=== PATIENT | female | born 1940 ===

== ENCOUNTER 2024-12-26 21:27 | Observation (INO) | payer MEDICARE, SELFPAY ==
--- OUTSIDE RECORDS SUMMARY | 2024-01-10 04:00 | XMS_ITS ---
Author Organization [facility] Safia mckeon Billing Info Address [address] [place] [address] Care Team Providers Care Stockroom Clerk Name Role Phone Belen Willis Primary Care Provider RODNEY Hernandez [phone] REASON FOR VISIT B/P Check Encounters Encounter Location Date Provider Diagnosis [id number] [place] [id number] [facility] [address] 01/10/2024 RODNEY LYNCH Plan Of Treatment No Information Progress Notes * Melissa DELGADILLO PDOB:[birth year] (84 yo F)Acc No.[id number]:01/10/2024 PROGRESS NOTE Patient: Melissa DIAZ Provider: Ivy LYNCH MD :1940 A ge:83 Y S ex:Female Date:01/10/2024 [facility]#:[id number] Address:[address], [place], [id number] Pcp:Belen Willis Subjective: * Chief Complaints: * 1 . B/P Check. * Medical History: Objective: * Vitals: Assessment: Plan: * Treatment: * * This progress note has not b een verified nor is it considered complete until locked and signed by the provider. Sign off status: Pending * Provider: Ivy LYNCH MD Date: 01/10/2024 Generated for Printi ng/Fakanikag/eTransmitting on: 0 12/26/2024 10:19 PM CDT
--- OUTSIDE RECORDS SUMMARY | 2024-03-07 04:00 | XMS_ITS ---
Author Organization [facility] Safia [facility]ckeon Billing Info Address [address] [place] [address] Care Team Providers Care Mission Support Specialist Name Role Phone Belen Willis Primary Care Provider RODNEY Hernandez [phone] REASON FOR VISIT follow up on results Encounters Encounter Location Date Provider Diagnosis [id number] [place] [id number] [facility] [place] [address] 03/07/2024 RODNEY LYNCH Plan Of Treatment No Information Progress Notes * Melissa DELGADILLO PDOB:[birth year] (84 yo F)Acc No.[id number]:03/07/2024 PROGRESS NOTE Patient: Melissa DIAZ Provider: Ivy LYNCH MD :1940 A ge:83 Y S ex:Female Date:03/07/2024 [facility]#:[id number] Address:[address], [place], [id number] Pcp:Belen Willis Subjective: * Chief Complaints: * 1 . Follow up on results. * Medical History: Objective: * Vitals: Assessment: Plan: * Treatment: * Care Plan Details* * This progress note has not b een verified nor is it considered complete until locked and signed by the provider. Sign off status: Pending * Provider: Ivy LYNCH MD Date: 0 03/07/2024 Generated for Printi ng/Faxing/eTransmitting on: 0 12/26/2024 10:21 PM CDT
--- OUTSIDE RECORDS SUMMARY | 2024-03-27 06:15 | XMS_ITS ---
Author Organization [facility] Safia [facility]ckeon Billing Info Address [address] [place], [place] [address] [place] [address] Care Team Providers Care House Detective Name Role Phone Deshaun Willisa Primary Care Provider RODNEY Hernandez Unavailable [phone] CHRIS ROY Unavailable [phone] Allergies Allergen (clinical drug ingredient) Drug/Non Drug Allergy documented on EMR Reaction Allergy Type Onset Date Status cephalexin Cephalexin Unknown Drug Allergy Activ e REASON FOR VISIT follow up on results*dr boone pt Medications Medication SIG (Take, Route, Frequency, Duration) Notes Start Date End Date Status Meloxicam 15 MG 1 tablet Orally Once a day for 30 day(s) Active Levothyroxine Sodium 25 MCG 1 tablet in the morning on an empty stomach Orally Once a day Active Hydroxychloroquine Sulfate 200 MG as directed Orally Once a day Active Ergocalciferol 1.25 MG (98291 UT) 1 capsule Orally Active Atorvastatin Calcium 10 MG 1 tablet Oral ly Once a day for 90 day(s) Active Olmesartan Medoxomil 20 MG 1 tablet Oral ly Once a day for 90 day(s) Active Xanax 0.25 MG 1 tablet Orally as needed Not-Taking Restasis 0.05 % 1 drop into affected eye Ophthalmic Twice a day Not-Taking GenTeal 0.25-0.3 % 1 drop as needed Ophthalmic Four times a day Not-Taking Metoprolol Succinate ER 100 MG 1 tablet Orally Once a day for 90 day(s) Active Sertraline HCl 25 MG 1 tablet Orally Onc e a day for 30 day(s) Active Aleve 220 MG 1 tablet with food or milk as needed Orally every 12 hrs Not-Taking Vitamin B12 Active Social History Tobacco Use: Social History Observation Description Date Details (start date - stop date) Never Smoker NA - NA Tobacco Status: Question Answer Notes Patient is a never smoker Vital Signs Height 62 in 03/27/2024 Weight 126 lbs 03/27/2024 BMI 23.04 kg/m2 03/27/2024 Blood pressure systolic 121 mm Hg 03/27/20 24 Blood pressure diastolic 71 mm Hg 024 Temperature 98.1 degrees Fahrenheit 03/27/20 24 Heart Rate 70 /min 03/27/2024 Oximetry 93 03/27/2024 Medications verified verball y. ///DB Encounters Encounter Location Date Provider Diagnosis [id number] [facility] [address] [facility] [address] 03/27/2024 CHRIS ROY Essential (primary) hypertension I10 ; Chest pain R07.9 ; Palpitations R00.2 and Dyslipidemia E78.5 Assessments Encounter Date Diagnosis (ICD Code) Assessment Notes Treatment Notes Treatment Clinical Notes Section Notes 03/27/2024 Essential (primary) hypertension (ICD-10 - I10) Blood pressure is well-controlled today and patient endorses improvement. Per previous medical record it appears that at 1 point she was ordered to start valsartan 160 mg daily however patient can not recall her starting this medication she is not taking it now. Given her blood pressure is under control we will keep regimen as such. MPI study was reviewed there was no indications of ischemia. I had qlil-si-iqhm contact with the patient. I have spent more than 50% of the time with the patient, preparing to see the patient, ordering tests, medications and procedures to included physical exam, counseling patient and coordinating care as well as reviewing and interpreting the test not separately reported. Along with counseling patient. Seen by Dr. Paolo Roy NP 03/27/2024 Chest pain (ICD-10 - R07.9) None reported. MPI study was negative I had rvar-vk-kkls contact with the patient. I have spent more than 50% of the time with the patient, preparing to see the patient, ordering tests, medications and procedures to included physical exam, counseling patient and coordinating care as well as reviewing and interpreting the test not separately reported. Along with counseling patient. Seen by Dr. Paolo Roy NP 03/27/2024 Palpitations (ICD-10 - R00.2) No reoccurrence, patient did not have Holter monitor done and given the fact that she is not having any symptoms we will not pursue a Holter monitor at this time I had gpqq-fx-lvsr contact with the patient. I have spent more than 50% of the time with the patient, preparing to see the patient, ordering tests, medications and procedures to included physical exam, counseling patient and coordinating care as well as reviewing and interpreting the test not separately reported. Along with counseling patient. Seen by Dr. Paolo Roy NP 03/27/2024 Dyslipidemia (ICD-10 - E78.5) Patient on statin and tolerating well I had xuas-ye-bpcx contact with the patient. I have spent more than 50% of the time with the patient, preparing to see the patient, ordering tests, medications and procedures to included physical exam, counseling patient and coordinating care as well as reviewing and interpreting the test not separately reported. Along with counseling patient. Seen by Dr. Paolo Roy NP 03/27/2024 Other I had rqta-gg-wqdx contact with the patient. I have spent more than 50% of the time with the patient, preparing to see the patient, ordering tests, medications and procedures to included physical exam, counseling patient and coordinating care as well as reviewing and interpreting the test not separately reported. Along with counseling patient. Seen by Dr. Paolo Roy NP Plan Of Treatment Medication Medication Name Sig Start Date Stop Date Notes Olmesartan Medoxomil 20 MG 1 tablet Oral ly Once a day for 90 day(s) Metoprolol Succinate ER 100 MG 1 tablet Orally Once a day for 90 day(s) Next Appt Details Follow Up: 6 Months, Reason: Progress Notes * Melissa PEREIRA PDOB:[birth year] (83 yo F)Acc No.[id number]:03/27/2024 PROGRESS NOTE Patient: Christel DIAZcichance Cunningham Provider: Yamile ROY AGACNP-BC :1940 A ge:83 Y S ex:Female Date:03/27/2024 C HN#:[id number] Address:[facility] [id number], [facility] [place], [id number] Pcp:Belen Willis Subjective: * Chief Complaints: * F ollow up on results*dr boone pt * HPI: H istory of Present Illness: Mrs. Pereira is an 83 y/o female patient who comes in for her follow up on results. Since last visit she has been in her normal cardiovascular state of health. Pt denies any recent or current chest pain, syncope, shortness of breath or dizziness. She denies any hospitalization and is medication compliant. And endorses that her blood pressure is now controlled. P revious Cardiology History: (11/28/23) NM Stress 1. Baseline ECG: NSR, WNL. 2. Stress: At peak pharmacologic stress the ECG did not show ST changes of myocardial ischemia. There were no arrhythmias present. 3. Stress ECG conclusions: No stress induced ischemia by ECG criteria. 4. Myocardial perfusion imaging: There is no transient ischemic dilation of the left ventricle during stress. The TID ratio is 1.06. Anterior wall attenuation. No reversible myocardial perfusion defects noted; indicating no myocardial ischemia; elicited by exercise that can be demonstrated by nuclear image. 5. Gated SPECT: The calculated left ventricular ejection fraction is 76%. LV global systolic function is normal. No left ventricular regional motion abnormality XR CHEST 06/14/2018: Normal chest LHC 06/25/2018: Normal Left heart filling pressures, Normal LV sys function LV EF 55-60%, no mitral regurg, Mild non obstructive, epicardial CAD. NECK US 12/14/18: Negative for suspicious mass or fluid collection, benign appearing neck lymph nodes are noted most likely reactive, nonspecific enlarged right internal jugular vein without thrombosis. (08/31/2021) CT Angiogram Neck: Minimal nonocclusive atherosclerotic changes in the right carotid bifurcation and proximal cervical ICA. Dominant right vertebral artery as anatomic variant; No evident carotid or vertebral flow-limiting stenosis,occlusion,dissection,aneurysms,pseudoaneurysm or vascular malformations. * ROS: A ll systems reviewed, pertinent positive negatives listed HPI. * Medical History: * Surgical History: h ysterectomy Appendectomy * Hospitalization/Major Diagno stic Procedure: [facility] on 06/14/2018 due to onset of substernal chest pressure with high blood pressure. (207mmHg systolic) readmitted into [facility] on 06/23/2018 due to continuing of chest pain not relieved with NTG spray, with associated nausea. EKG no acute changes, Troponin I unremarkable * Family History: M other: alive 102 yrs. F [place]: 80 yrs, diagnosed with Heart Attack, CAD. B rother 1: alive 79 yrs. B rother 2: alive 58 yrs. S ister 1: alive 82 yrs. S ister 2: alive 81 yrs. 1 son(s) , 2 daughter(s) - healthy. . Father [place] at 70yo. * Social History: A lcohol Use Patient d oes not use alcohol T obacco Status Patient is a never smoker E xercise: no routine exercise, active at home. M arital Status: . Carmen zayas with: spouse, daughter. * Medications: T akingAtorvastatin Calcium 10 MG Tablet 1 tablet Orally Once a day Ergocalciferol 1.25 MG (27451 UT) Capsule 1 capsule Orally Hydroxychloroquine Sulfate 200 MG Tablet as directed Orally Once a day Levothyroxine Sodium 25 MCG Tablet 1 tablet in the morning on an empty stomach Orally Once a day Meloxicam 15 MG Tablet 1 tablet Orally Once a day Metoprolol Succinate ER 100 MG Tablet Extended Release 24 Hour 1 tablet Orally Once a day Olmesartan Medoxomil 20 MG Tablet 1 tablet Orally Once a day Sertraline HCl 25 MG Tablet 1 tablet Orally Once a day Vitamin B12 Taking Atorvastatin Calcium 10 MG Tablet 1 tablet Orally Once a day Taking Ergocalciferol 1.25 MG (54559 UT) Capsule 1 capsule Orally Taking Hydroxychloroquine Sulfate 200 MG Tablet as directed Orally Once a day Taking Levothyroxine Sodium 25 MCG Tablet 1 tablet in the morning on an empty stomach Orally Once a day Taking Meloxicam 15 MG Tablet 1 tablet Orally Once a day Taking Metoprolol Succinate ER 100 MG Tablet Extended Release 24 Hour 1 tablet Orally Once a day Taking Olmesartan Medoxomil 20 MG Tablet 1 tablet Orally Once a day Taking Sertraline HCl 25 MG Tablet 1 tablet Orally Once a day Taking Vitamin B12 Not-TakingAleve 220 MG Tablet 1 tablet with food or milk as needed Orally every 12 hrs GenTeal 0.25-0.3 % Gel 1 drop as needed Ophthalmic Four times a day Restasis 0.05 % Emulsion 1 drop into affected eye Ophthalmic Twice a day Xanax 0.25 MG Tablet 1 tablet Orally as needed Not-Taking Aleve 220 MG Tablet 1 tablet with food or milk as needed Orally every 12 hrs Not-Taking GenTeal 0.25-0.3 % Gel 1 drop as needed Ophthalmic Four times a day Not-Taking Restasis 0.05 % Emulsion 1 drop into affected eye Ophthalmic Twice a day Not-Taking Xanax 0.25 MG Tablet 1 tablet Orally as needed * Allergies: C ephalexin: Allergyno[Allergies Verified] Objective: * Vitals: H t: 62 in, Ht-cm: 157.48 cm, Wt: 126 lbs, Wt-k.15 kg, BMI:23.04, Weight Change: -2.4 lbs, Body Surface Area: 1.58, BP:121/71, Temp:98.1F, HR:70, Oxygen sat %:93. Medications verified verbally. ///DB. * Examination: C ARDIOLOGY: Constitutional: n o acute distress. Head and Face: a traumatic, normocephalic. Eyes: e xtraocular muscles intact. Ears, Nose, Mouth, Throat: p atient can hear normal voice, oral mucosa moist without lesions. Neck: n o carotid bruits, JVD, lymphadenopathy or thyromegaly. Respiratory: c lear to auscultation bilaterally, good inspiratory effort. Cardiovascular: w ithout murmurs, rubs, gallops, heaves or thrills. Assessment: * Assessment: 1. E ssential (primary) hypertension - I10 (Primary) N otes :Blood pressure is well-controlled today and patient endorses improvement. Per previous medical record it appears that at 1 point she was ordered to start valsartan 160 mg daily however patient can not recall her starting this medication she is not taking it now. Given her blood pressure is under control we will keep regimen as such. MPI study was reviewed there was no indications of ischemia. 2 . C hest pain - R07.9 N otes :None reported. MPI study was negative 3 . P alpitations - R00.2 N otes :No reoccurrence, patient did not have Holter monitor done and given the fact that she is not having any symptoms we will not pursue a Holter monitor at this time 4 . D yslipidemia - E78.5 N otes :Patient on statin and tolerating well I had gegg-ka-npxc contact w ith the patient. I have spent more than 50% of the time with the patient, preparing to see the patient, ordering tests, medications and procedures to included physical exam, counseling patient and coordinating care as well as reviewing and interpreting the test not separately reported. Along with counseling patient. Seen by Manuela LIN, Dr. Boone Plan: * Treatment: * Procedure Codes: * Preventive Medicine: Quality Measures: F all Risk Assessment: Date of Screening Completed: 0 07/14/2023 Increased Fall Risk Factors: N o fall risk factors History Falls in Past Year: N o falls in the past year W eight Assessment Normal BMI C ontinue current weight management routine * Follow Up: 6 Months * Care Plan Details* * Sign off status: Completed Addendum: * true * Provider: LANNY RODRIGUEZ Date: Generated for Nasima rodriguez/Jonah/Jacquelinitting on: 0 12/26/2024 10:20 PM CDT History and Physical Notes * HPI (History of Present Illness) Category Sub-Category Detail Notes Category Not es History of Present Illness Mrs. Peerira is an 83 y/o female patient who comes in for her follow up on results. Since last visit she has been in her normal cardiovascular state of health. Pt denies any recent or current chest pain, syncope, shortness of breath or dizziness. She denies any hospitalization and is medication compliant. And endorses that her blood pressure is now controlled Previous Cardiology History (11/28/23) NM Stress 1. Baseline ECG: NSR, WNL. 2. Stress: At peak pharmacologic stress the ECG did not show ST changes of myocardial ischemia. There were no arrhythmias present. 3. Stress ECG conclusions: No stress induced ischemia by ECG criteria. 4. Myocardial perfusion imaging: There is no transient ischemic dilation of the left ventricle during stress. The TID ratio is 1.06. Anterior wall attenuation. No reversible myocardial perfusion defects noted; indicating no myocardial ischemia; elicited by exercise that can be demonstrated by nuclear image. 5. Gated SPECT: The calculated left ventricular ejection fraction is 76%. LV global systolic function is normal. No left ventricular regional motion abnormality XR CHEST 06/14/2018: Normal chest LHC 06/25/2018: Normal Left heart filling pressures, Normal LV sys function LV EF 55-60%, no mitral regurg, Mild non obstructive, epicardial CAD. NECK US 12/14/18: Negative for suspicious mass or fluid collection, benign appearing neck lymph nodes are noted most likely reactive, nonspecific enlarged right internal jugular vein without thrombosis. (08/31/2021) CT Angiogram Neck: Minimal nonocclusive atherosclerotic changes in the right carotid bifurcation and proximal cervical ICA. Dominant right vertebral artery as anatomic variant; No evident carotid or vertebral flow-limiting stenosis,occlusion,dissecti on,aneurysms,pseudoaneurysm or vascular malformations. Examination Category Sub-Category Detail Notes Category Not es CARDIOLOGY Constitutional: no acute distress Head and Face: atraumatic, normocep halic Eyes: extraocular muscles intact Ears, Nose, Mouth, Throat: patient can h ear normal voice, oral mucosa moist without lesions Neck: no carotid bruits, J VD, lymphadenopathy or thyromegaly Respiratory: clear to auscultatio n bilaterally, good inspiratory effort Cardiovascular: without murmurs, rub s, gallops, heaves or thrills
--- OUTSIDE RECORDS SUMMARY | 2024-12-04 08:52 | XMS_ITS | Encounter Summary ---
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 200 [place] [address] Phone: tel: fax: Referral ID Status Reason Start Date Expiration Date Visits Re quested Visits Authorized [id number] 1 1 Encounter Details Date Type Department Care Team (Latest Contact Info) Description 12/04/2024 8:52 AM CDT - 12/04/2024 11:45 AM CDT Hospital Encounter Outpatient Procedure Center in [place], [place] [address] [place] [address] Angelique Chase M.D. [address] [place] [phone] Discharge Disposition: Home or Self Care Social History Tobacco Use Types Packs/Day Years Used Date Smoking Tobacco: Never Smokeless Tobacco: Never C Utilities Answer Date Recorded In the past 12 months has [employer] electric, gas, oil, or water company threatened to shut off services in your home? No 09/22/2024 Hunger Vital Sign Answer Date Recorded Within the past 12 months, y ou worried that your food would run out before you got the money to buy more. Never true 09/23/19 Within the past 12 months, t he food you bought just didn't last and you didn't have money to get more. Never true 09/22/2024 PRAPARE - Transportation Answer Date Re corded In the past 12 months, has l ack of transportation kept you from medical appointments or from getting medications? No 08/26 In the past 12 months, has l ack of transportation kept you from meetings, work, or from getting things needed for daily living? No 09/22/2024 Housing Stability Answer Date Recorded What is your living situation today? I have a [facility] place to live 09/22/2024 Comments No Sex and Gender Information Value Date Recorded Sex Assigned at Female 09/22/2024 12:18 PM CDT Legal Sex Female 3:21 PM CLINICAL RESEARCH MONITOR Gender Identity Female 09/22/2024 12:18 PM CDT Sexual Orientation Straight 09/22/2024 12 :18 PM CDT documented as of this encounter Last Filed Vital Signs Vital Sign Reading Time Taken Comments Blood Pressure 128/49 12/04/2024 11:15 AM CDT Pulse 55 12/04/2024 11:25 AM CDT Temperature 36.4 C (97.5 F) 12/04/2024 9:59 AM CDT Respiratory Rate 15 12/04/2024 11:25 AM CDT Oxygen Saturation 98% 12/04/2024 11:25 AM CDT Inhaled Oxygen Concentration - - Weight 57.3 kg (126 lb 5.2 oz) 12/04/2024 9:59 A M CDT Height 156.3 cm (5' 1.54) 12/04/2024 9:59 AM CD T Body Mass Index 23.46 12/04/2024 9:59 AM CDT documented in this encounter Discharge Instructions * Discharge Instructions* Fadia Hopper R.N. - 12/04/2024 10:13 AM CDT Images from the original note were not included. Care after Cataract Surgery: Instructions for the first day and night of surgery After IV sedation After you have been sedated, it is common to have lapses of memory, slowed reaction time and impaired judgment. For the rest of the day after being sedated: Rest. Do not drive or operate motorized vehicles or equipment. Do not return to work or school. Do not take on responsibility for children or anyone who depends on your care. Do not use exercise equipment or take part in rough play or sports. Do not drink alcoholic beverages. You can resume your usual diet as you feel able. Activities & Restrictions Keep eye shield on until your next appointment. You may bathe or shower; avoid getting water in the eye. You may bend over and lift things that do not require straining. Do not rub your operated eye. Normal Symptoms Blurred vision, as it can take a few days for your vision to improve. Itching and mild irritation. Foreign body sensation. Tearing sensation. Warning Signs (call the numbers below if you experience these) Severe eye pain (uncommon). Headache sensation around the operated eye, especially if associated with nausea or vomiting (uncommon). Eye Drop Instructions You do not need to use any eye drops in the operative eye until you are instructed to do so by yourdoctor. Continue any eye drops in the non-operative as usual For discomfort You may take acetaminophen (e.g. Tylenol) for any discomfort. Contact Information If you have immediate or urgent concerns, please contact Dr. Angelique Chase, 8- at [phone] or [facility] Block Cleaner, (after business hours, and ask for the distribution operations manager eye doctor) Please bring all of your eye drops with you to your next appointment. documented in this encounter Medications at Time of Discharge alcaftadine (Lastacaft) 0.25 % ophthalmic solution Administer 1 drop into both eyes daily. 02/15/2023 atorvastatin (Lipitor) 10 mg tablet Take 10 mg by mouth daily. cholecalciferol, vitamin D3, (VITAMIN D3 ORAL) Take 1 tablet by mouth daily. cyanocobalamin, vitamin B-12, (VITAMIN B-12 ORAL) Take 2 tablets by mouth daily. hydroxychloroqui ne (PlaqueniL) 200 mg tablet Take 1.5 tablets by mouth daily. levothyroxine 25 mcg tablet Take 25 mcg by mouth daily before morning meal. meloxicam (Mobic) 15 mg tablet Take 15 mg by mouth daily. metoprolol succinate (Toprol XL) 100 mg 24 hr tablet Take 100 mg by mouth daily. olmesartan (Benicar) 20 mg tablet Take 20 mg by mouth daily. 02/15/2023 peg 400-propylene glycol, PF, (Systane) 0.4-0.3 % ophthalmic solution Administer 1 drop into both eyes 3 (three) times a day as needed for dry eyes. sertraline (Zoloft) 25 mg tablet Take 25 mg by mouth daily. documented as of this encounter Progress Notes * Angelique Chase M.D. - 12/04/2024 10:55 AM CDT Discussed options with patient further regarding proceeding with salzmann nodule removal first and then cataract surgery in each eye. I did recommend this as the best uncorrected visual quality option. However, she is limited by time and location (lives in [place]) and cannot stick around for so manysurgeries. She is aware that she may need salzmann nodule removal at a later date and that this mayfurther change her glasses prescription. Angelique Chase M.D. documented in this encounter OR Notes * Op Note - Angelique Chase M.D. 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 The eye was prepared and draped in the usual sterile ophthalmic fashion, and a lid speculum wasplaced. A 6 mm optical zone marker was used to help center and size the rhexis. A paracentesis portwas placed clockwise to the planned main incision. Lidocaine followed by Viscoelastic was used to fill the anterior chamber. A 2.4 mm temporal clear corneal incision was created using a kahlil keratome. A continuous-tear circular capsulorrhexis was created. The lens was hydrodissected and hydrodeli neated using balanced salt solution. The nucleus was removed by using phacoemulsification,and the remaining cortex was removed with irrigation and aspiration. The capsular bag was reinflated with viscoelastic, and the intraocular lens was inserted into the capsular bag and the haptics rotated into position. The intraocular lens power calculation (optical biometry) was reviewed, and the best lens power was selected to produce the desired postoperative refractive state. The viscoelastic was removed using irrigation and aspiration. The anterior chamber was reinflated with balanced salt solution, and the wound was checked to be watertight at the end of the procedure. Preservative free intracameral antibiotic was administered. Polymyxin B/neomycin/dexamethasone ointment was applied followed bya Ruano shield. The patient tolerated the procedure well. Angeliqeu Chase M.D. documented in this encounter Plan of Treatment Upcoming Encounters Date Type Department Care Team (Late st Contact Info) Description 01/17/2025 7:30 AM CDT Ancillary Procedure Department of Ophthalmology in [place], [place] [address] [place] [phone] Angelique Chase M.D. [address] [place] [phone] 01/17/2025 8:00 AM CDT Office Visit Department of Ophthalmology in [place], [place] [address] [place] [phone] Angelique Chase M.D. [address] [place] [phone] 01/17/2025 1:30 PM CDT Ancillary Procedure Department of Ophthalmology in [place], [place] [address] [place] [phone] Angelique Chase M.D. 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 ADULT OXYGEN THERAPY Routine 12/04/2024 9:40 AM CDT documented in this encounter Visit Diagnoses Not on filedocumented in this encounter Administered Medications Inactive Administered Medications - up to 3 most recent administrations Medication Order MAR Action Action Date Dose Rate Site chlorhexidine 0.12 % mouthwash 15 mL (Peridex) 15 mL, swish & spit, Once as needed, Chlorhexidine mouthwash (Peridex) should be given if patient did not complete oral care, if completion is greater than 4 hours prior to surgery or procedure start time and they do not have the opportunity to brush their teeth now (or at this time)., Starting on Mon12/04/24 at 0941, For 1 dose, Pre-Op, Instruct patient to swish entire content of Chlorhexidine 0.12% mouthwash (Peridex) 15 mL cup for 30 seconds, then spit, swish & spit. If patient is at risk for aspiration, apply Chlorhexidine 0.12% mouthwash to a swab and gently swab the patient's teeth and gums. Ensure swab is not oversaturated. cyclopentolate-phenylephrin e in hypromellose 0.125-1.25 % ophthalmic solution 1 Application (Dilating Drops) 1 Application, ophthalmic, Once, On Mon12/04/24 at 1000, For 1 dose, Pre-Op, Apply over cornea in operative eye, towards superior fornix and towards inferior fornix. Apply at least 30 minutes prior to case. Given 12/04/2024 9:53 AM CDT 1 Application fentaNYL injection 25 mcg (Sublimaze) 25 mcg, intravenous, Every 2 min PRN, sedation, Administer over 1 minute immediately prior to the procedure. May repeat every 2 minutes to a maximum of 200 mcg, until pain score of 3 or less, or until the patient meets the pain comfort goal, or RASS 0 to -2. Do not give if respiratory rate is less than 8 breaths/minute., Starting on Mon12/04/24 at 0940, Subsequent doses Given 12/04/2024 10:22 AM CDT 25 mcg Lactated Ringer's 20 mL/hr, intravenous, Continuous, Starting on Mon12/04/24 at 1000 New Bag 12/04/2024 10:12 AM CDT 20 mL/hr 20 mL/hr midazolam (PF) injection 1 mg (Versed) 1 mg, intravenous, Every 2 min PRN, sedation, Starting on Mon12/04/24 at 0940, If RASS is 0 or -1, may repeat every 2 minutes for a maximum of 5 mg. Do not give if respiratory rate is less than 8 breaths/minute. Given 12/04/2024 10:22 AM CDT 1 mg sodium chloride 0.9 % injection 10 mL 10 mL, intravenous, As needed, line care, Starting on Mon12/04/24 at 0941, Pre-Op, Peripheral Intravenous Catheter and Rapid Infusion Catheter, prior to blood sampling, post blood transfusion or post blood sampling sodium chloride 0.9 % injection 3 mL 3 mL, intravenous, As needed, line care, Starting on Mon12/04/24 at 0941, Pre-Op, Prior to and following infusion and between multiple consecutive infusions: sodium chloride 0.9 % injection sodium chloride 0.9 % injection 3 mL 3 mL, intravenous, Every 12 hours scheduled, First dose on Mon12/04/24 at 2100, Pre-Op, Peripheral Intravenous Catheter and Rapid Infusion Catheter, when no infusion to maintain patency documented in this encounter Active and Recently Administered Medications Times are shown in CDT. Scheduled Medication Order 12/02/2024 12/03/2024 12/04/2024 acetaminophen tablet 1,000 mg (TylenoL) 1,000 mg, oral, Once, On Mon12/04/24 at 1000, For 1 dose 1000 (Due) cyclopentolate-phenylephrine in hypromellose 0.125-1.25 % ophthalmic solution 1 Application (Dilating Drops) (COMPLETED) 1 Application, ophthalmic, Once, On Mon12/04/24 at 1000, For 1 dose, Pre-Op, Apply over cornea in operative eye, towards superior fornix and towards inferior fornix. Apply at least 30 minutes prior to case. 0953 (Given - Provid er: Fadia Hopper R.N.) sodium chloride 0.9 % injection 3 mL 3 mL, intravenous, Every 12 hours scheduled, First dose on Mon12/04/24 at 2100, Pre-Op, Peripheral Intravenous Catheter and Rapid Infusion Catheter, when no infusion to maintain patency sodium chloride 0.9 % injection 3 mL 3 mL, intravenous, Every 12 hours scheduled, First dose on Mon12/04/24 at 2100, Peripheral Intravenous Catheter and Rapid Infusion Catheter, when no infusion to maintain patency Continuous Medication Order 12/02/2024 12/03/2024 12/04/2024 Lactated Ringer's 20 mL/hr, intravenous, Continuous, Starting on Mon12/04/24 at 1000 1012 (New Bag - Prov ider: Fadia Hopper R.N.)1127 (Stopped - Provider: Fadia Hopper R.N.) PRN Medication Order 12/02/2024 12/03/2024 12/04/2024 balanced salt solution ophthalmic irrigation (BSS) (CANCELED) As needed, Starting on Mon12/04/24 at 1030, Intra-Op 1030 (Given - Provid er: Regi Carson M.D.) chlorhexidine 0.12 % mouthwash 15 mL (Peridex) 15 mL, swish & spit, Once as needed, Chlorhexidine mouthwash (Peridex) should be given if patient did not complete oral care, if completion is greater than 4 hours prior to surgery or procedure start time and they do not have the opportunity to brush their teeth now (or at this time)., Starting on Mon12/04/24 at 0941, For 1 dose, Pre-Op, Instruct patient to swish entire content of Chlorhexidine 0.12% mouthwash (Peridex) 15 mL cup for 30 seconds, then spit, swish & spit. If patient is at risk for aspiration, apply Chlorhexidine 0.12% mouthwash to a swab and gently swab the patient's teeth and gums. Ensure swab is not oversaturated. EPINEPHrine (PF) 0.1 mg in balanced salt solution 500 mL ophthalmic irrigation (COMPLETED) 500 mL, intraocular irrigation, Once in surgery, OR use only, Starting on Mon12/04/24 at 0855, For 1 dose, Intra-Op 1045 (Given - Provid er: Angelique A Bernhisel, M.D.) fentaNYL injection 25 mcg (Sublimaze) 25 mcg, intravenous, Every 2 min PRN, sedation, Administer over 1 minute immediately prior to the procedure. May repeat every 2 minutes to a maximum of 200 mcg, until pain score of 3 or less, or until the patient meets the pain comfort goal, or RASS 0 to -2. Do not give if respiratory rate is less than 8 breaths/minute., Starting on Mon12/04/24 at 0940, Subsequent doses 1022 (Given - Provid er: Ilene Mcdonald R.N.) fentaNYL injection 50 mcg (Sublimaze) 50 mcg, intravenous, Once as needed, sedation, Starting on Mon12/04/24 at 0940, For 1 dose, IV Push flumazeniL injection 0.2 mg (Romazicon) 0.2 mg, intravenous, Once as needed, reversal, Starting on Mon12/04/24 at 0940, For 1 dose, Administer once if patient has a RASS score of -4, -5 and has a respiratory rate less than 8 breaths/minute. ibuprofen tablet 600 mg 600 mg, oral, Once as needed, moderate pain or score 4-6 of 10, Starting on Mon12/04/24 at 0940, For 1 dose lidocaine (PF) 10 mg/mL (1 %) injection (Xylocaine) (CANCELED) As needed, Starting on Mon12/04/24 at 1033, Intra-Op 1033 (Given - Provid er: Regi Carson M.D.) lidocaine HCL 2 % topical jelly (Glydo) (CANCELED) As needed, Starting on Mon12/04/24 at 1022, Intra-Op 1022 (Given - Provid er: Ilene Andino R.N.) midazolam (PF) injection 1 mg (Versed) 1 mg, intravenous, Once as needed, sedation, Starting on Mon12/04/24 at 0940, For 1 dose midazolam (PF) injection 1 mg (Versed) 1 mg, intravenous, Every 2 min PRN, sedation, Starting on Mon12/04/24 at 0940, If RASS is 0 or -1, may repeat every 2 minutes for a maximum of 5 mg. Do not give if respiratory rate is less than 8 breaths/minute. 1022 (Given - Provid er: Ilene M Harry, R.N.) midazolam (PF) injection 1 mg (Versed) 1 mg, intravenous, Every 5 min PRN, anxiety, sedation, Starting on Mon12/04/24 at 0940, For 4 doses moxifloxacin 250 mcg/0.05 mL intraocular injection 250 mcg (Vigamox) (COMPLETED) 250 mcg, intraocular injection, Once in surgery, OR use only, Starting on Mon12/04/24 at 0855, For 1 dose, Intra-Op, Inject into right eye. OPHTHALMIC Use Only. Amount Dispensed Exceeds Dose: 0.3 mL vial 1047 (Given - Provid er: Angelique Chase M.D.) naloxone injection 0.2 mg (Narcan) 0.2 mg, intravenous, Once as needed, respiratory depression, Starting on Mon12/04/24 at 0940, For 1 dose, Administer once if patient has a RASS score of -4, -5 and has a respiratory rate less than 8 breaths/minute. neomycin-polymyxin B-dexameth ophthalmic ointment (Maxitrol) (CANCELED) As needed, Starting on Mon12/04/24 at 1050, Intra-Op 1050 (Given - Provid er: Angelique Chase M.D.) ondansetron (PF) injection 4 mg (Zofran) 4 mg, intravenous, Once as needed, nausea, vomiting, Starting on Mon12/04/24 at 0940, For 1 dose povidone-iodine 10 % external solution (Betadine) (CANCELED) As needed, Starting on Mon12/04/24 at 1025, Intra-Op 1025 (Given - Provid er: Ilene Andino, R.N.) povidone-iodine 5 % ophthalmic solution (Betadine) (CANCELED) As needed, Starting on Mon12/04/24 at 1021, Intra-Op 1021 (Given - Provid er: Ilene Andino, R.N.) proparacaine 0.5 % ophthalmic solution (Alcaine) (CANCELED) As needed, Starting on Mon12/04/24 at 1020, Intra-Op 1020 (Given - Provid er: Ilene Andino, R.N.) sodium chloride 0.9 % injection 10 mL 10 mL, intravenous, As needed, line care, Starting on Mon12/04/24 at 0941, Pre-Op, Peripheral Intravenous Catheter and Rapid Infusion Catheter, prior to blood sampling, post blood transfusion or post blood sampling sodium chloride 0.9 % injection 10 mL 10 mL, intravenous, As needed, line care, Starting on Mon12/04/24 at 0940, Peripheral Intravenous Catheter and Rapid Infusion Catheter, prior to blood sampling, post blood transfusion or post blood sampling sodium chloride 0.9 % injection 3 mL 3 mL, intravenous, As needed, line care, Starting on Mon12/04/24 at 0941, Pre-Op, Prior to and following infusion and between multiple consecutive infusions: sodium chloride 0.9 % injection sodium chloride 0.9 % injection 3 mL 3 mL, intravenous, As needed, line care, Starting on Mon12/04/24 at 0940, Prior to and following infusion and between multiple consecutive infusions: sodium chloride 0.9 % injection documented in this encounter
--- OUTSIDE RECORDS SUMMARY | 2024-12-04 09:55 | XMS_ITS | Encounter Summary ---
Author Organization 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 200 [place] [address] Phone: tel: fax: Referral ID Status Reason Start Date Expiration Date Visits Re quested Visits Authorized [id number] 1 1 Encounter Details Date Type Department Care Team (Latest Contact Info) Description 12/04/2024 9:55 AM CDT - 12/04/2024 10:47 AM CDT Surgery Outpatient Procedure Center in [place], [place] 200 [place] [phone] Angelique Chase M.D. [address] [place] [phone] PHACOEMULSIFICATION CATARACT WITH INTRAOCULAR LENS IMPLANTATION Social History Tobacco Use Types Packs/Day Years Used Date Smoking Tobacco: Never Smokeless Tobacco: Never [facility] Utilities Answer Date Recorded In the past 12 months has e electric, gas, oil, or water company threatened to shut off services in your home? No 09/22/2024 Hunger Vital Sign Answer Date Recorded Within the past 12 months, y ou worried that your food would run out before you got the money to buy more. Never true 09/23/19 25 Within the past 12 months, t he [...] your living situation today? 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 Gender Identity Female 09/22/2024 12:18 PM CDT Sexual Orientation Straight 09/22/2024 12 :18 PM CDT documented as of this encounter Last Filed Vital Signs Vital Sign Reading Time Taken Comments Blood Pressure 132/55 12/04/2024 10:45 AM CDT Pulse 48 12/04/2024 10:45 AM CDT Temperature 36.4 C (97.5 F) 12/04/2024 9:59 AM CDT Respiratory Rate 12 12/04/2024 10:45 AM CDT Oxygen Saturation 100% 12/04/2024 10:45 AM CDT Inhaled Oxygen Concentration - - Weight 57.3 kg (126 lb 5.2 oz) 12/04/2024 9:59 A M CDT Height 156.3 cm (5' 1.54) 12/04/2024 9:59 AM CD T Body Mass Index 23.46 12/04/2024 9:59 AM CDT documented in this encounter Discharge Instructions * Discharge Instructions* Fadia Hopper RMercyN. - 12/04/2024 10:13 AM CDT Images from [...] please contact Dr. Angelique Chase, 8- at [phone] [facility] Patron Attendant, (after business hours, and ask for the credit collections clerk eye doctor) Please bring all of your [...] limited by time and location (lives in [place]) and cannot stick around for so manysurgeries. [...] shield. The patient tolerated the procedure well. Angelique Chase M.D. documented in this encounter Plan of Treatment Upcoming Encounters Date Type Department Care Team (Late st Contact Info) Description 01/17/2025 7:30 AM CDT Ancillary Procedure Department of Ophthalmology in [place], [place] [address] [place] [phone] Angelique Chase M.D. [address] [place] [phone] 01/17/2025 8:00 AM CDT Office Visit Department of Ophthalmology in [place], [place] [address] [place] [phone] Angelique Chsae M.D. [address] [place] [phone] 01/17/2025 1:30 PM CDT Ancillary Procedure Department of Ophthalmology in [place], [place] [address] [place] [phone] Angelique Chase M.D. [address] [place] [phone] documented as of this encounter Procedures Procedure Name Priority Date/Time Associated Diagnosis Comments PHACOEMULSIFICATION CATARACT WITH INTRAOCULAR LENS IMPLANTATION 12/04/2024 10:04 AM CDT Age Related Nuclear Cataract Bilateral ADULT OXYGEN THERAPY Routine 12/04/2024 9:40 AM CDT documented in this encounter Visit Diagnoses Diagnosis Age Related Nuclear Cataract Bilateral documented in this encounter Administered Medications Inactive Administered Medications - up to 3 most recent administrations Medication Order MAR Action Action Date Dose Rate Site balanced salt solution ophthalmic irrigation (BSS) As needed, Starting on Mon12/04/24 at 1030, Intra-Op Given 12/04/2024 10:30 AM CDT 30 mL Right Eye chlorhexidine 0.12 % mouthwash 15 mL (Peridex) [...] and gums. Ensure swab is not oversaturated. cyclopentolate-phenyleph rine in hypromellose 0.125-1.25 % ophthalmic solution 1 Application (Dilating Drops) 1 Application, ophthalmic, Once, On Mon12/04/24 at 1000, For 1 dose, Pre-Op, Apply over cornea in operative eye, towards superior fornix and towards inferior fornix. Apply at least 30 minutes prior to case. Given 12/04/2024 9:53 AM CDT 1 Application EPINEPHrine (PF) 0.1 mg in balanced salt solution 500 mL ophthalmic irrigation 500 mL, intraocular irrigation, Once in surgery, OR use only, Starting on Mon12/04/24 at 0855, For 1 dose, Intra-Op Given 12/04/2024 10:45 AM CDT 500 mL Right Eye fentaNYL injection 25 mcg (Sublimaze) 25 mcg, [...] 10:12 AM CDT 20 mL/hr 20 mL/hr lidocaine (PF) 10 mg/mL (1 %) injection (Xylocaine) As needed, Starting on Mon12/04/24 at 1033, Intra-Op Given 12/04/2024 10:33 AM CDT 0.5 mL Right Eye lidocaine HCL 2 % topical jelly (Glydo) As needed, Starting on Mon12/04/24 at 1022, Intra-Op Given 12/04/2024 10:22 AM CDT 1 Application Right Eye midazolam (PF) injection 1 mg (Versed) 1 mg, intravenous, Every 2 min PRN, sedation, Starting on Mon12/04/24 at 0940, If RASS is 0 or -1, may repeat every 2 minutes for a maximum of 5 mg. Do not give if respiratory rate is less than 8 breaths/minute. Given 12/04/2024 10:22 AM CDT 1 mg moxifloxacin 250 mcg/0.05 mL intraocular injection 250 mcg (Vigamox) 250 mcg, intraocular injection, Once in surgery, OR use only, Starting on Mon12/04/24 at 0855, For 1 dose, Intra-Op, Inject into right eye. OPHTHALMIC Use Only. Amount Dispensed Exceeds Dose: 0.3 mL vial Given 12/04/2024 10:47 AM CDT 0.1 mL Right Eye neomycin-polymyxin B-dexameth ophthalmic ointment (Maxitrol) As needed, Starting on Mon12/04/24 at 1050, Intra-Op Given 12/04/2024 10:50 AM CDT 1 Application Right Eye povidone-iodine 10 % external solution (Betadine) As needed, Starting on Mon12/04/24 at 1025, Intra-Op Given 12/04/2024 10:25 AM CDT 5 mL Right Eye povidone-iodine 5 % ophthalmic solution (Betadine) As needed, Starting on Mon12/04/24 at 1021, Intra-Op Given 12/04/2024 10:21 AM CDT 2 drops Right Eye proparacaine 0.5 % ophthalmic solution (Alcaine) As needed, Starting on Mon12/04/24 at 1020, Intra-Op Given 12/04/2024 10:20 AM CDT 2 drops Right Eye sodium chloride 0.9 % injection 10 mL [...] Intra-Op 1045 (Given - Provid er: Angelique Chase M.D.) fentaNYL injection 25 mcg (Sublimaze) 25 [...]
--- OUTSIDE RECORDS SUMMARY | 2024-12-04 10:00 | XMS_ITS | Encounter Summary ---
Author Organization [facility] Address [address] [place] [address] Care Team Providers Care Roustabout Crew Leader Name Role Phone Unavailable Primary Care Provider Unavailabl e Encounter Details Date Type Department Care Team (Late st Contact Info) Description 12/04/2024 10:00 AM CDT Ancillary Procedure Department of General Surgery Social History Tobacco Use Types Packs/Day Years Used Date Smoking Tobacco: Never Smokeless Tobacco: Never [facility] Utilities Answer Date Recorded In the past 12 months has [employer] electric, gas, oil, or water [employer] threatened to shut off services in your [...] your living situation today? 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 [address] [place] [phone] 01/17/2025 8:00 AM CDT Office Visit Department of Ophthalmology in [place], [place] [address] [place] [phone] Angelique Chase M.D. [address] [place] [phone] 01/17/2025 1:30 PM CDT Ancillary Procedure Department of Ophthalmology in [place], [place] [address] [place] [phone] Angelique Chase M.D. [address] [place] [phone] documented as of this encounter Goals Goal Patient Goal Type Associated Problems Recent Progress Patient-Stated? Author Autogenerat ed Goal Care Plan Autogenerated Problem No Ny Kenney documented as of this encounter Procedures Procedure Name Priority Date/Time Associated Diagnosis Comments SURGERY IMAGE EXAM Routine 12/04/2024 10 :00 AM CDT documented in this encounter Results * PHACOEMULSIFICATION CATARACT WITH INTRAOCULAR LENS IMPLANTA-Surgery Image Exam (12/04/2024 10:00 AMCDT) 12/04/2024 9:56 AM CDT Narrative IIMS - 12/04/2024 10:54 AM CDT This order has been created and auto-finalized to support the import of images acquired without order. The clinical documentation to support these images can be found on the encounter that produced images. us Provider Not In System IMG NON RAD IMAGING PROCE MELVIN Final Result [facility] NA documented in this encounter Visit Diagnoses Not on filedocumented in this encounter Additional Health Concerns Active Problems Noted Date Diagnosed Date Autogenerated Problem 10/10/2024 documented as of this encounter
--- OUTSIDE RECORDS SUMMARY | 2024-12-05 15:45 | XMS_ITS | Encounter Summary ---
Author Organization [facility] Address [address] [place] [phone] Care Team Providers Care Digital Marketer Name Role Phone Unavailable Primary Care Provider Unavailabl e Reason for Visit * Reason Comments Post-op Follow-up * Outpatient (Routine) - Closed Specialty Diagnoses / Procedures Referred By Oh black Referred To Contact Ophthalmology Angelique Chase M.D. [address] [place] [phone] Phone: tel: fax: [facility] Referral ID Status Reason Start Date Expiration Date Visits Re quested Visits Authorized [id number] Closed 10/10/2024 04/11/2026 1 1 Encounter Details Date Type Department Care Team (Latest Contact Info) Description 12/05/2024 3:45 PM CDT Office Visit Department of Ophthalmology in [place], [place] [address] [place] [phone] Angelique Chase M.D. [address] [place] [phone] Intraocular Lens Implant Status Post (Primary Dx) Social History Tobacco Use Types Packs/Day Years Used Date Smoking Tobacco: Never Smokeless Tobacco: Never [facility] Utilities Answer Date Recorded In the past 12 months has e electric, gas, oil, or water company threatened to shut off services in your home? No 09/22/2024 Hunger Vital Sign Answer Date Recorded Within the past 12 months, y ou worried that your food would run out before you got the money to buy more. Never true 03/30/20 25 Within the past 12 months, t [...] your living situation today? 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 - 12/05/2024 3:45 PM CDT Post op instructions given and drops instilled. * Angelique Chase M.D. - 12/05/2024 3:45 PM CDT Melissa Delgadillo was seen today for Post-op Follow-up #POD1 Cataract surgery with intraocular lens implant, right eye. Doing well. Prednisolone acetate 1% and Ketorolac 4x/day, then taper by 1drop/day each week into operative eye as per written instructions. Wear shield while sleeping (bed and naps). Wear glasses during the day. Call if decreased vision, increased photophobia, pain, discharge or increased redness occurs. Return for surgery left eye 12/18 documented in this encounter Plan of Treatment Upcoming Encounters Date Type Department Care Team (Late st Contact Info) Description 01/17/2025 7:30 AM CDT Ancillary Procedure Department of Ophthalmology in [place], [place] [address] [place] [phone] Angelique Chase M.D. [address] [place] [phone] 01/17/2025 8:00 AM CDT Office Visit Department of Ophthalmology in [place], [place] [address] [place] [phone] Angelique Chase M.D. [address] [place] [phone] 01/17/2025 1:30 PM CDT Ancillary Procedure Department of Ophthalmology in [place], [place] [address] [place] [phone] Angelique Chase M.D. [address] [place] [phone] documented as of this encounter Goals Goal Patient Goal Type Associated Problems Recent Progress Patient-Stated? Author Autogenerat ed Goal Care Plan Autogenerated Problem Ny Carpio documented as of this encounter Visit Diagnoses Diagnosis Intraocular Lens Implant Status Post- Primary documented in this encounter Additional Health Concerns Active Problems Noted Date Diagnosed Date Autogenerated Problem 10/10/2024 documented as of this encounter
--- OUTSIDE RECORDS SUMMARY | 2024-12-18 06:35 | XMS_ITS | Encounter Summary ---
Author Organization [facility] Address [address] [place] [address] Care Team Providers Care Printing Machinist Name Role Phone Unavailable Primary Care Provider Unavailabl e Encounter Details Date Type Department Care Team (Late st Contact Info) Description 12/18/2024 6:35 AM CDT Ancillary Procedure Department of General Surgery Social History Tobacco Use Types Packs/Day Years Used Date Smoking Tobacco: Never Smokeless Tobacco: Never [facility] Utilities Answer Date Recorded In the past 12 months has [employer] electric, gas, oil, or water [employer] threatened to shut off services in your [...] your living situation today? 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 [address] [place] [phone] 01/17/2025 8:00 AM CDT Office Visit Department of Ophthalmology in [place], [place] [address] [place] [phone] Angelique Chase M.D. [address] [place] [phone] 01/17/2025 1:30 PM CDT Ancillary Procedure Department of Ophthalmology in [place], [place] [address] [place] [phone] Angelique Chase M.D. [address] [place] [phone] documented as of this encounter Goals Goal Patient Goal Type Associated Problems Recent Progress Patient-Stated? Author Autogenerat ed Goal Care Plan Autogenerated Problem No Ny Kenney documented as of this encounter Procedures Procedure Name Priority Date/Time Associated Diagnosis Comments SURGERY IMAGE EXAM Routine 12/18/2024 6: 35 AM CDT documented in this encounter Results * Oph-Surgery Image Exam (12/18/2024 6:35 AM CDT) 12/18/2024 6:32 AM CDT Narrative IIMS - 12/18/2024 7:38 AM CDT This order has been created and auto-finalized to support the import of images acquired without order. The clinical documentation to support these images can be found on the encounter that produced images. us Provider Not In System IMG NON RAD IMAGING PROCE DURES Final Result [facility]IM[facility] NA documented in this encounter Visit Diagnoses Not on filedocumented in this encounter Additional Health Concerns Active Problems Noted Date Diagnosed Date Autogenerated Problem 10/10/2024 documented as of this encounter
--- OUTSIDE RECORDS SUMMARY | 2024-12-18 06:35 | XMS_ITS | Encounter Summary ---
Author Organization [facility] Address [address] [place] [address] Care Team Providers Care Framing Machine Tender Name Role Phone Unavailable Primary Care Provider Unavailabl e Reason for Visit * Auth/Cert (Routine) Specialty Diagnoses / Procedures Referred By Oh t Referred To Contact Diagnoses Cataract Cataract [H26.9] Procedures [place] RMVL CATARACT INSERT LENS [place] OPHTHALMIC BIOMETRY IOL PHACOEMULSIFICATION CATARACT WITH INTRAOCULAR LENS IMPLANTATION Angelique Chase M.D. [address] [place] [phone] Phone: tel: fax: Referral ID Status Reason Start Date Expiration Date Visits Re quested Visits Authorized [id number] 1 1 Encounter Details Date Type Department Care Team (Latest Contact Info) Description 12/18/2024 6:35 AM CDT - 12/18/2024 8:40 AM CDT Hospital Encounter Outpatient Procedure Center in [place], [place] 200 [place] [address] Angelique Chase M.D. 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 - 12/18/2024 6:48 AM CDT Images from the original note [...] urgent concerns, please contact Dr. Angelique Chase, Mon-Mon 8-5 at [phone] or [facility] Fire Truck Driver, (after business hours, and ask for the temperature control inspector eye doctor) Please bring all of your [...] tablet Take 100 mg by mouth daily. moxifloxacin (Vigamox) 0.5 % ophthalmic solution Instill 1 drop four times a day to both eyes starting 3 days prior to surgery 3 mL 12/04/2024 1:14 PM CDT 12/04/2024 olmesartan (Benicar) 20 mg tablet Take 20 mg by mouth daily. 02/15/2023 peg 400-propylene glycol, PF, (Systane) 0.4-0.3 % ophthalmic solution Administer 1 drop into both eyes 3 (three) times a day as needed for dry eyes. sertraline (Zoloft) 25 mg tablet Take 25 mg by mouth daily. ketorolac (Acular) 0.5 % ophthalmic solution Administer 1 drop into the right eye 4 (four) times a day. 5 mL 12/05/2024 4:15 PM CDT 12/05/2024 5 prednisoLONE acetate (Pred Forte) 1 % ophthalmic suspension Administer 1 drop into the right eye 4 (four) times a day. 5 mL 12/04/2024 1:14 PM CDT 12/04/2024 5 documented as of this encounter OR Notes * Op Note - Angelique Chase M.D. - 12/18/2024 7:46 AM CDT Pre-op Diagnosis Combined Forms Age Related Cataract Left Eye Post-op Diagnosis Combined Forms Age Related Cataract Left Eye Findings As expected Complications None Operative Note Narrative Procedure: Cataract extraction with intraocular lens implant, left eye Lens implant: DCBOO +27.5 A final pause occurred just before the [...] Date Type Department Care Team (Late st [facility]) Description 01/17/2025 7:30 AM CDT Ancillary Procedure Department of Ophthalmology in [place], [place] [address] [place] [phone] Angelique Chase M.D. [address] [place] [phone] 01/17/2025 8:00 AM CDT Office Visit Department of Ophthalmology in [address] [phone] Angelique Chase M.D. [address] [place] [phone] 01/17/2025 1:30 PM CDT Ancillary Procedure Department of Ophthalmology in [address] [phone] Angelique Chase M.D. [address] [place] [phone] documented as of this encounter Goals Goal Patient Goal Type Associated Problems Recent Progress Patient-Stated? Author Autogenerat ed Goal Care Plan Autogenerated Problem No Ny Kenney documented as of this encounter Procedures Procedure Name Priority Date/Time Associated Diagnosis Comments ADULT OXYGEN THERAPY Routine 12/18/2024 7:26 AM CDT ADULT OXYGEN THERAPY Routine 12/18/2024 7:26 AM CDT PHACOEMULSIFICATION CATARACT WITH INTRAOCULAR LENS IMPLANTATION 12/18/2024 7:21 AM CDT Combined Forms Age Related Cataract Left Eye documented in this encounter Visit Diagnoses Not [...] now (or at this time)., Starting on Mon12/18/24 at 0737, For 1 dose, Pre-Op, Instruct patient to swish entire content of Chlorhexidine 0.12% mouthwash (Peridex) 15 mL cup for 30 seconds, then spit, swish & spit. If patient is at risk for aspiration, apply Chlorhexidine 0.12% mouthwash to a swab and gently swab the patient's teeth and gums. Ensure swab is not oversaturated. fentaNYL injection 25 mcg (Sublimaze) 25 mcg, [...] is less than 8 breaths/minute., Starting on Mon12/18/24 at 0726, Subsequent doses Given 12/18/2024 7:40 AM CDT 25 mcg midazolam (PF) injection 1 mg (Versed) 1 mg, intravenous, Every 2 min PRN, sedation, RASS 0, Starting on Mon12/18/24 at 0726, For 3 hours, May repeat every 2 minutes for a maximum of 5 mg. Do not give if respiratory rate is less than 8 breaths/minute. Given 12/18/2024 7:40 AM CDT 1 mg sodium chloride 0.9 % injection 10 mL 10 mL, intravenous, As needed, line care, Starting on Mon12/18/24 at 0737, Pre-Op, Peripheral Intravenous Catheter and Rapid Infusion Catheter, prior to blood sampling, post blood transfusion or post blood sampling sodium chloride 0.9 % injection 3 mL 3 mL, intravenous, As needed, line care, Starting on Mon12/18/24 at 0737, Pre-Op, Prior to and following infusion and between multiple consecutive infusions: sodium chloride 0.9 % injection sodium chloride 0.9 % injection 3 mL 3 mL, intravenous, Every 12 hours scheduled, First dose on Mon12/18/24 at 0900, Pre-Op, Peripheral Intravenous Catheter and Rapid Infusion Catheter, when no infusion to maintain patency documented in this encounter Active and Recently Administered Medications Times are shown in CDT. Scheduled Medication Order 12/16/2024 12/17/2024 12/18/2024 cyclopentolate-phenylephrine in carboxymethylcellulose 0.125-1.25 % ophthalmic solution 1 Application (Dilating Drops) 1 Application, ophthalmic, Once, On Mon12/18/24 at 0800, For 1 dose, Pre-Op, Apply over cornea in operative eye, towards superior fornix and towards inferior fornix. Apply at least 30 minutes prior to case. 0800 (Due) sodium chloride 0.9 % injection 3 mL 3 mL, intravenous, Every 12 hours scheduled, First dose on Mon12/18/24 at 0900, Pre-Op, Peripheral Intravenous Catheter and Rapid Infusion Catheter, when no infusion to maintain patency Continuous Medication Order 12/16/2024 12/17/2024 12/18/2024 Lactated Ringer's 20 mL/hr, intravenous, Continuous, Starting on Mon12/18/24 at 0745 0745 (Due) PRN Medication Order 12/16/2024 12/17/2024 12/18/2024 balanced salt solution ophthalmic irrigation (BSS) (CANCELED) As needed, Starting on Mon12/18/24 at 0745, Intra-Op 0745 (Given - Provid er: Regi Carson M.D.) [...] now (or at this time)., Starting on Mon12/18/24 at 0737, For 1 dose, Pre-Op, Instruct patient to [...] in surgery, OR use only, Starting on Mon12/18/24 at 0639, For 1 dose, Intra-Op 0748 (Given - Provid er: Angelique Chase M.D.) fentaNYL injection 25 mcg (Sublimaze) 25 mcg, intravenous, Once as needed, sedation, Starting on Mon12/18/24 at 0726, For 1 dose, IV Push fentaNYL injection 25 mcg (Sublimaze) 25 mcg, [...] is less than 8 breaths/minute., Starting on Mon12/18/24 at 0726, Subsequent doses 0740 (Given - Provid er: Mireya Babb R.N.) flumazeniL injection 0.2 mg (Romazicon) 0.2 mg, intravenous, Once as needed, reversal, Starting on Mon12/18/24 at 0726, For 1 dose, Administer once if patient has a RASS score of -4, -5 and has a respiratory rate less than 8 breaths/minute. lidocaine (PF) 10 mg/mL (1 %) injection (Xylocaine) (CANCELED) As needed, Starting on Mon12/18/24 at 0747, Intra-Op 0747 (Given - Provid er: Angelique Chase M.D.) lidocaine HCL 2 % topical jelly (Glydo) (CANCELED) As needed, Starting on Mon12/18/24 at 0738, Intra-Op 0738 (Given - Provid er: Regi Carson M.D.) midazolam (PF) injection 0.25 mg (Versed) 0.25 mg, intravenous, Every 2 min PRN, sedation, Starting on Mon12/18/24 at 0726, If RASS is -2, may repeat every 2 minutes to a maximum of 5 mg. Do not give if respiratory rate is less than 8 breaths/minute. midazolam (PF) injection 0.5 mg (Versed) 0.5 mg, intravenous, Once as needed, sedation, Starting on Mon12/18/24 at 0726, For 1 dose midazolam (PF) injection 0.5 mg (Versed) 0.5 mg, intravenous, Every 2 min PRN, sedation, Starting on Mon12/18/24 at 0726, If RASS greater than -3, give additional dose(s) of 0.5 mg IV every 2 minutes for a maximum of 5 mg. Do not give if respiratory rate is less than 8 breaths/minute. midazolam (PF) injection 1 mg (Versed) 1 mg, intravenous, Every 2 min PRN, sedation, RASS 0, Starting on Mon12/18/24 at 0726, For 3 hours, May repeat every 2 minutes for a maximum of 5 mg. Do not give if respiratory rate is less than 8 breaths/minute. 0740 (Given - Provid er: Mireya Babb R.N.) moxifloxacin 0.5 % ophthalmic solution (Vigamox) (CANCELED) As needed, Starting on Mon12/18/24 at 0747, Intra-Op 0807 (Given - Provid er: Angelique Chase M.D.) naloxone injection 0.2 mg (Narcan) 0.2 mg, intravenous, Once as needed, respiratory depression, Starting on Mon12/18/24 at 0726, For 1 dose, Administer once if patient has a RASS score of -4, -5 and has a respiratory rate less than 8 breaths/minute. neomycin-polymyxin B-dexameth ophthalmic ointment (Maxitrol) (CANCELED) As needed, Starting on Mon12/18/24 at 0746, Intra-Op 0809 (Given - Provid er: Regi Carson M.D.) ondansetron (PF) injection 4 mg (Zofran) 4 mg, intravenous, Once as needed, nausea, vomiting, Starting on Mon12/18/24 at 0726, For 1 dose povidone-iodine 10 % external solution (Betadine) (CANCELED) As needed, Starting on Mon12/18/24 at 0740, Intra-Op 0740 (Given - Provid er: Yuri Rosario R.N.) povidone-iodine 5 % ophthalmic solution (Betadine) (CANCELED) As needed, Starting on Mon12/18/24 at 0738, Intra-Op 0738 (Given - Provid er: Regi Carson M.D.) proparacaine 0.5 % ophthalmic solution (Alcaine) (CANCELED) As needed, Starting on Mon12/18/24 at 0737, Intra-Op 0737 (Given - Provid er: Regi Carson M.D.) sodium chloride 0.9 % injection 10 mL 10 mL, intravenous, As needed, line care, Starting on Mon12/18/24 at 0737, Pre-Op, Peripheral Intravenous Catheter and Rapid Infusion Catheter, prior to blood sampling, post blood transfusion or post blood sampling sodium chloride 0.9 % injection 3 mL 3 mL, intravenous, As needed, line care, Starting on Mon12/18/24 at 0737, Pre-Op, Prior to and following infusion and between multiple consecutive infusions: sodium chloride 0.9 % injection documented in this encounter Additional Health Concerns Active Problems Noted Date Diagnosed Date Autogenerated Problem 10/10/2024 documented as of this encounter
--- OUTSIDE RECORDS SUMMARY | 2024-12-18 07:30 | XMS_ITS | Encounter Summary ---
Author Organization [facility] Address [address] [place] [address] Care Team Providers Care Auricular Therapist Name Role Phone Unavailable Primary Care Provider Unavailabl e Reason for Visit * Auth/Cert (Routine) Specialty Diagnoses / Procedures Referred By Oh t Referred To Contact Diagnoses Cataract Cataract [H26.9] Procedures [place] RMVL CATARACT INSERT LENS [place] OPHTHALMIC BIOMETRY IOL PHACOEMULSIFICATION CATARACT WITH INTRAOCULAR LENS IMPLANTATION Angelique Chase M.D. [address] [place] [phone] Phone: tel: fax: Referral ID Status Reason Start Date Expiration Date Visits Re quested Visits Authorized [id number] 1 1 Encounter Details Date Type Department Care Team (Latest Contact Info) Description 12/18/2024 7:30 AM CDT - 12/18/2024 8:22 AM CDT Surgery Outpatient Procedure Center in [place], [place] 200 [place] [address] Angelique Chase M.D. [address] [place] [phone] PHACOEMULSIFICATION CATARACT WITH INTRAOCULAR LENS IMPLANTATION Social [...] your living situation today? 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 - 12/18/2024 6:48 AM CDT Images from [...] contact Dr. Angelique Chase, Mon-Mon 8-5 at [phone] or [facility] Mill Tender Warm Up, (after business hours, and ask for the helper steel fabrication eye doctor) Please bring all of your [...] Date Type Department Care Team (Late st [facility] Info) Description 01/17/2025 7:30 AM CDT Ancillary Procedure Department of Ophthalmology in [address] [phone] Angelique Chase M.D. [address] [place] [phone] 01/17/2025 8:00 AM CDT Office Visit Department of Ophthalmology in [address] [phone] Angelique Chase M.D. [address] [place] [phone] 01/17/2025 1:30 PM CDT Ancillary Procedure Department of Ophthalmology in [address] [phone] Angelique Chase M.D. [address] [place] [phone] documented as of this encounter Goals Goal [...] Eye documented in this encounter Visit Diagnoses Diagnosis Combined Forms Age Related Cataract Left Eye documented in this encounter Administered Medications Inactive Administered Medications - up to 3 most recent administrations Medication Order MAR Action Action Date Dose Rate Site balanced salt solution ophthalmic irrigation (BSS) As needed, Starting on Mon12/18/24 at 0745, Intra-Op Given 12/18/2024 7:45 AM CDT 30 mL Left Eye chlorhexidine 0.12 % mouthwash 15 mL [...] Mon12/18/24 at 0639, For 1 dose, Intra-Op Given 12/18/2024 7:48 AM CDT 500 mL Left Eye fentaNYL injection 25 mcg (Sublimaze) 25 [...] Given 12/18/2024 7:40 AM CDT 25 mcg lidocaine (PF) 10 mg/mL (1 %) injection (Xylocaine) As needed, Starting on Mon12/18/24 at 0747, Intra-Op Given 12/18/2024 7:47 AM CDT 0.4 mL Left Eye lidocaine HCL 2 % topical jelly (Glydo) As needed, Starting on Mon12/18/24 at 0738, Intra-Op Given 12/18/2024 7:38 AM CDT 1 Application Left Eye midazolam (PF) injection 1 mg (Versed) 1 mg, intravenous, Every 2 min PRN, sedation, RASS 0, Starting on Mon12/18/24 at 0726, For 3 hours, May repeat every 2 minutes for a maximum of 5 mg. Do not give if respiratory rate is less than 8 breaths/minute. Given 12/18/2024 7:40 AM CDT 1 mg moxifloxacin 0.5 % ophthalmic solution (Vigamox) As needed, Starting on Mon12/18/24 at 0747, Intra-Op Given 12/18/2024 8:07 AM CDT 0.1 mL Left Eye neomycin-polymyxin B-dexameth ophthalmic ointment (Maxitrol) As needed, Starting on Mon12/18/24 at 0746, Intra-Op Given 12/18/2024 8:09 AM CDT 1 Application Left Eye povidone-iodine 10 % external solution (Betadine) As needed, Starting on Mon12/18/24 at 0740, Intra-Op Given 12/18/2024 7:40 AM CDT 5 mL Left Eye povidone-iodine 5 % ophthalmic solution (Betadine) As needed, Starting on Mon12/18/24 at 0738, Intra-Op Given 12/18/2024 7:38 AM CDT 2 drops Left Eye proparacaine 0.5 % ophthalmic solution (Alcaine) As needed, Starting on Mon12/18/24 at 0737, Intra-Op Given 12/18/2024 7:37 AM CDT 2 drops Left Eye sodium chloride 0.9 % injection 10 [...] Intra-Op 0738 (Given - Provid er: Regi Carsno M.D.) proparacaine 0.5 % ophthalmic solution (Alcaine) [...]
--- OUTSIDE RECORDS SUMMARY | 2024-12-19 13:00 | XMS_ITS | Encounter Summary ---
Author Organization [facility] Address [address] [place] [address] Care Team Providers Care Dba Manager Name Role Phone Unavailable Primary Care Provider Unavailabl e Reason for Referral * Outpatient (Routine) - Authorized Specialty Diagnoses / Procedures Referred By Oh black Referred To Contact Ophthalmology Angelique Chase M.D. [address] [place] [phone] Phone: tel: fax: [facility] Referral ID Status Reason Start Date Expiration Date V isits Requested Visits Authorized [id number] Authorized 12/19/2024 06/20/2026 1 1 Reason for Visit * Reason Comments Post-op Follow-up * Outpatient (Routine) - Closed Specialty Diagnoses / Procedures Referred By Oh black Referred To Contact Ophthalmology Angelique Chase M.D. [address] [place] [phone] Phone: tel: fax: [facility] Referral ID Status Reason Start Date Expiration Date Visits Re quested Visits Authorized [id number] Closed 10/10/2024 04/11/2026 1 1 Encounter Details Date Type Department Care Team (Latest Contact Info) Description 12/19/2024 1:00 PM CDT Office Visit Department of Ophthalmology in [place], [place] [address] [place] [phone] Angelique Chase M.D. [address] [place] [address] [place] [phone] Intraocular Lens Implant Status Post (Primary Dx) Social History Tobacco Use Types Packs/Day Years Used Date Smoking Tobacco: Never Smokeless Tobacco: Never [facility] Utilities Answer Date Recorded In the past 12 months has th e electric, gas, oil, or water company [...] your living situation today? 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 - 12/19/2024 1:00 PM CDT Melissa Delgadillo was seen today for No chief complaint on file. # POD1 Cataract surgery with intraocular lens implant, left eye. Doing well. Prednisolone acetate 1% and Ketorolac 4x/day, then taper by 1drop/day each week into operative eye as per written instructions. Wear shield while sleeping (bed and naps). Wear glasses during the day. Call if decreased vision, increased photophobia, pain, discharge or increased redness occurs. #POW2 Cataract surgery with intraocular lens implant, right eye. Doing well. Prednisolone acetate 1% and Ketorolac 4x/day, then taper by 1drop/day each week into operative eye as per written instructions. Call if decreased vision, increased photophobia, pain, discharge or increased redness occurs. Return 1 month; OK to cancel visit on 12/25 documented in this encounter Plan of Treatment Upcoming Encounters Date Type Department Care Team (Late st Contact Info) Description 01/17/2025 7:30 AM CDT Ancillary Procedure Department of Ophthalmology in [place], [place] [address] [place] [phone] Angelique Chase M.D. [address] [place] [phone] 01/17/2025 8:00 AM CDT Office Visit Department of Ophthalmology in [address] [phone] Angelique Chase M.D. [address] [place] [phone] 01/17/2025 1:30 PM CDT Ancillary Procedure Department of Ophthalmology in [address] [phone] Angelique Chase M.D. [address] [place] [phone] Scheduled Referrals Name Type Priority Associated Diagnoses Order Schedule Ophthalmology Post Op (clinic) Outpatient Referral Routine Expected: 01/18/2025, Expires: 03/21/2026 documented as of this encounter Goals Goal Patient Goal Type Associated Problems Recent Progress Patient-Stated? Author Autogenerat ed Goal Care Plan Autogenerated Problem No Ny Kenney documented as of this encounter Visit Diagnoses Diagnosis Intraocular Lens Implant Status Post- Primary documented in this encounter Additional Health Concerns Active Problems Noted Date Diagnosed Date Autogenerated Problem 10/10/2024 documented as of this encounter
[2024-12-26 21:36] VITALS: PULSE 54; RESP 18; TEMP 36.6; O2SAT 100; BMI 22.7
--- NOTE | 2024-12-26 22:02 | CRLHL7_ITS ---
For Patients: As a result of the Cures Act, medical imaging exams and procedure reports are released immediately into your electronic medical record. You may view this report before your referring provider. If you have questions, please contact your health care provider. INDICATION: Abdominal pain, epigastric pain TECHNIQUE: CT Abdomen and pelvis with i.v. contrast. Coronal and sagittal reformats were obtained. CONTRAST: 63 mL Isovue 370 COMPARISON: None FINDINGS: Lower chest: Unremarkable. Liver: There is a subcapsular cyst in the left lateral segment of the liver measuring 2.5 cm. Spleen: Unremarkable. Pancreas: Unremarkable. Gallbladder: Unremarkable. Kidney: Unremarkable. No kidney or ureteral stones or obstruction seen. Adrenal: Unremarkable. Bowel: The stomach, small bowel, and colon are unremarkable. The appendix is not identified. Vascular: Moderate atherosclerotic calcifications of the abdominal aorta are present. Lymph: Unremarkable. Peritoneum: Unremarkable. No pneumoperitoneum is seen. No significant ascites is noted. Pelvis: The patient is status post prior hysterectomy. Soft tissue: Unremarkable. Bone: A moderate chronic appearing compression deformity seen along the superior endplate of L1. Trace anterolisthesis of L5-S1 is seen. IMPRESSION: 1. No CT correlate for the patient`s symptoms seen. Dictated by Herman Tarango MD @ 12/27/2024 12:03:04 AM Please note that all CT scans at this facility use dose modulation, iterative reconstruction, and/or weight-based dosing when appropriate to reduce radiation dose to as low as reasonably achievable. Dictated by: Herman Tarango MD @ 12/27/2024 00:10:00 (Electronically Signed)
--- NOTE | 2024-12-26 22:02 | CRLHL7_ITS ---
For Patients: As a result of the Century Cures Act, medical imaging exams and procedure reports are released immediately into your electronic medical record. You may view this report before your referring provider. If you have questions, please contact your health care provider. INDICATION: Headache TECHNIQUE: CT Head without i.v. contrast. Coronal and sagittal reformats were obtained. COMPARISON: None FINDINGS: CSF space: Unremarkable for age. Brain: No evidence of mass, acute infarction or hemorrhage is seen. No mass-effect or midline shift is seen. Mild diffuse cortical atrophy is noted. The brain parenchyma is otherwise normal in appearance with preservation of the nash-white matter junction. Calvarium: The visualized paranasal sinuses are well aerated. The mastoid air cells are clear. The visualized orbits are grossly unremarkable. The calvarium is unremarkable in appearance with no fractures identified. IMPRESSION: 1. No evidence of acute infarction, intracranial hemorrhage, or mass-effect seen. Please note that all CT scans at this facility use dose modulation, iterative reconstruction, and/or weight-based dosing when appropriate to reduce radiation dose to as low as reasonably achievable. Dictated by: Herman Tarango MD @ 12/27/2024 00:00:28 (Electronically Signed)
--- NOTE | 2024-12-26 22:12 | ED.GENADULT ---
HPI - General Adult General Date Seen: 12/26/24 Chief complaint: Headache/Migraine Stated complaint: High BP, headache Time Seen by Provider: 12/26/24 21:43 Source: patient Mode of arrival: ambulatory Limitations: no limitations History of Present Illness HPI narrative: Patient is an 84-year-old female presenting to the emergency department for headache and abdominal pain. He states last night she was having very mild headache then woke up today and was still having mild headache. Took a Tylenol and was feeling well throughout the day but then throughout this afternoon evening was developing headache again. Took another Tylenol without much improvement. Headache she states is mostly feeling like a squeezing sensation in the back of her head. Denies having headaches like this before. She states previously your headaches we more frontal. Denies any vision changes. Denies any neck pain. Denies any numbness or weakness. Her daughter checked her blood pressure was elevated so they came to the emergency department. While they were on the way here patient started developing some nausea. She has been having issues with epigastric pain for the past couple months. Has not been able to see her primary care provider as they are and [facility] and she is up in [place] visiting family. Has not had any vomiting, denies any diarrhea or constipation. Denies any chest pain or shortness of breath. No other concerns noted Related Data Allergies Allergy/AdvReac Type Severity Reaction Status Date / Time cephalexin AdvReac Intermediate Verified 12/26/24 23:39 Review of Systems Status of ROS: Reports: 10 or more systems reviewed and unremarkable except as noted in History and below Exam Narrative: Exam Narrative: Const: Well-nourished, Well-developed, in mild distress Eyes: PERRL, no conjunctival injection, and symmetrical lids HENT: Atraumatic external nose and ears. Moist mucous membranes. Neck: Symmetric, trachea midline, No thyromegaly. CVS: RRR, No murmurs or gallops. Peripheral pulses 2+ and equal in all extremities RESP: Unlabored respiratory effort. Clear to auscultation bilaterally. GI: Nontender/Nondistended, No rebound or guarding. MSK:Extremities w/o deformity, Normal Active ROM Skin: Warm, Dry. No rashes or lesions. Neuro: Normal Muscle tone, No focal neurological deficits. Psych: Awake, Alert, & Oriented x3. Appropriate mood and affect. Const: Vital Signs, click to edit/add: Vital Signs - 24 hr 12/26/24 21:36 12/26/24 23:01 Temperature 97.8 F 98.3 F Pulse Rate [Pulse Oximeter] 54 L 58 L Respiratory Rate 18 16 Blood Pressure [Ri ght Upper Arm] 148/70 H Pulse Oximetry 100 98 Oxygen Delivery Me thod Room Air Room Air Course Vital Signs Vital signs: Initial Vital Signs Temperature 97.8 F 12/26/24 21:36 Temperature Source Temporal Artery Scan 12/26/24 21:36 Pulse Rate 54 L 12/26/24 21:36 Pulse Rhythm Regular 12/26/24 21:36 Respiratory Rate 18 12/26/24 21:36 Pulse Oximetry 100 12/26/24 21:36 Oxygen Delivery Method Room Air 12/26/24 21:36 Vital Signs Temperature 97.8 F 12/26/24 21:36 Pulse Rate 54 L 12/26/24 21:36 Respiratory Rate 18 12/26/24 21:36 Pulse Oximetry 100 12/26/24 21:36 Oxygen Delivery Method Room Air 12/26/24 21:36 Temperature 98.3 F 12/26/24 23:01 Pulse Rate 58 L 12/26/24 23:01 Respiratory Rate 16 12/26/24 23:01 Blood Pressure 148/70 H 12/26/24 23:01 Pulse Oximetry 98 12/26/24 23:01 Oxygen Delivery Method Room Air 12/26/24 23:01 Medications Administered Medications: Generic Name Dose Route Start Last Admin Trade Name Freq PRN Reason Stop Dose Admin Sodium Chloride 1,000 mls @ 100 mls/hr 12/26/24 23:58 12/27/24 00:30 0.9 % Sodium Chloride 1000 Ml IV 100 mls/hr .Q10H ASHLEY Administration Discontinued Medications Generic Name Dose Route Start Last Admin Trade Name Freq PRN Reason Stop Dose Admin Diphenhydramine HCl 25 mg 12/26/24 22:01 12/26/24 22:32 Diphenhydramine 50 Mg/Ml Inj IVP 12/26/24 22:02 25 mg ONCE ONE Administration Sodium Chloride 1,000 mls @ 1,000 mls/hr 12/26/24 22:15 12/26/24 23:33 0.9 % Sodium Chloride 1000 Ml IV 12/26/24 23:14 Infused .Q1H ASHLEY Infusion Metoclopramide HCl 10 mg 12/26/24 22:01 12/26/24 22:33 Metoclopramide Hcl 5 Mg/Ml Inj IVP 12/26/24 22:02 10 mg ONCE ONE Administration Medical Decision Making MDM Narrative Medical decision making narrative: Patient is an 84-year-old female presenting for multiple complaints. For headache this seems likely a tension-type headache but considering her age and rather vagueness of her symptoms I will do a CT scan. She does seem to be downplaying symptoms. Will also give her a migraine cocktail. For her abdominal pain could be pancreatitis or gastritis. Location the pain makes appendicitis and diverticulitis less likely. SBO seems unlikely at this time. No right upper quadrant tenderness I do not believe his gallbladder liver disease. Will order a CMP, lipase, urinalysis, CT scan of the head and abdomen pelvis, Reglan, Benadryl. Also given L fluid. Patient's CBC shows no acute concerning findings. White blood cell count is mildly low. BMP does show a sodium of 125. She states she has previously been told she has low sodium but states it was only slightly low. Has never been told to take sodium supplements. Unsure what her baseline is. Lipase within normal limits. Liver function tests within normal limits. Troponin within normal limits. Considering length of symptoms not believe repeat troponin is necessary. Urinalysis shows no clear signs of UTI. EKG shows no concerning abnormalities. The imaging returned showing no acute concerning abnormalities has reviewed by myself and the radiologist. Her headache has improved work with this sodium of 125 it is on the order of recommended admission criteria. We were unable to determine what her baseline sodium is and she has said she has been told it is only a little bit low in the past. She does not have access to my chart as her clinic does not use and online portal we do not have ability to get records from her clinic at this time. Considering she would not be able to have follow-up for likely 2 weeks I do believe it is in her best interest to be admitted to bring her sodium back up. They are agreeable to this plan Lab Data Labs: Lab Results 12/26/24 12/26/24 12/26/24 Range/Units 22:00 22:02 22:16 WBC 4.37 L (4.50-11.00) K/uL RBC 4.12 (4.00-5.20) m/uL Hgb 12.2 (12.0-16.0) gm/dL Hct 35.3 (33.0-51.0) % MCV 86 (80-100) fL MCH 30 (26-34) pg MCHC 35 (32-36) gm/dL RDW Coeff of Angelique 12.2 (11.5-15.5) % Plt Count 281 (140-440) K/uL Neut % (Auto) 39.8 L (42.0-72.0) % Lymph % (Auto) 42.8 (20-44) % [place] % (Auto) 8.5 (0.0-11.0) % Eos % (Auto) 8.2 H (0.0-7.0) % Baso % (Auto) 0.7 (0.0-3.0) % Neut # (Auto) 1.70 (1.7-7.0) K/uL Lymph # (Auto) 1.90 (0.90-2.90) K/uL [place] # (Auto) 0.40 (0.00-0.90) K/UL Eos # (Auto) 0.40 (0.00-0.50) K/uL Baso # (Auto) 0.00 (0.00-0.30) K/uL Abs Immat Gran (auto) 0.00 (0.00-0.30) K/uL Imm/Tot Granulo (auto) 0.0 % Sodium (135-149) mmol/L Potassium (3.6-5.1) mmol/L Chloride (96-114) mmol/L Carbon Dioxide (20-32) mmol/L Anion Gap (7-15) mEq/L BUN (7-30) mg/dL Creatinine (0.5-1.5) mg/dL Estimated Creat Clear Estimated GFR ml/min Glucose (60-115) mg/dL Calcium (8.4-10.6) mg/dL Total Bilirubin (0.1-1.5) mg/dL AST (12-35) U/L ALT (4-35) U/L Alkaline Phosphatase (40-150) U/L Troponin I (0.01-0.04) ng/mL Total Protein (6.0-8.3) g/dL Albumin (3.3-5.0) g/dL Lipase (23-300) U/L Urine Color (Yellow) Urine Appearance (Clear) Urine pH (5.0-8.5) Ur Specific [place] (1.000-1.030) Urine Protein (Negative) Urine Glucose (UA) (Negative) Urine Ketones (Negative) Urine Blood (Negative) Urine Nitrite (Negative) Urine Bilirubin (Negative) Urine Urobilinogen (0.2-1.0) Ur Leukocyte Esterase (Negative) Urine RBC (0-2) Urine WBC (0-5) Ur Squamous Epith Cells (None-Few) Urine Bacteria (None) Lab Acknowledgement Test Added POC Creatinine 0.7 (0.6-1.3) mg/dl 12/26/24 12/26/24 12/26/24 Range/Units 22:29 22:30 23:04 WBC (4.50-11.00) K/uL RBC (4.00-5.20) m/uL Hgb (12.0-16.0) gm/dL Hct (33.0-51.0) % MCV (80-100) fL MCH (26-34) pg MCHC (32-36) gm/dL RDW Coeff of Angelique (11.5-15.5) % Plt Count (140-440) K/uL Neut % (Auto) (42.0-72.0) % Lymph % (Auto) (20-44) % [place] % (Auto) (0.0-11.0) % Eos % (Auto) (0.0-7.0) % Baso % (Auto) (0.0-3.0) % Neut # (Auto) (1.7-7.0) K/uL Lymph # (Auto) (0.90-2.90) K/uL [place] # (Auto) (0.00-0.90) K/UL Eos # (Auto) (0.00-0.50) K/uL Baso # (Auto) (0.00-0.30) K/uL Abs Immat Gran (auto) (0.00-0.30) K/uL Imm/Tot Granulo (auto) % Sodium 125 L (135-149) mmol/L Potassium 4.2 (3.6-5.1) mmol/L Chloride 92 L (96-114) mmol/L Carbon Dioxide 28 (20-32) mmol/L Anion Gap 5 L (7-15) mEq/L BUN 19 (7-30) mg/dL Creatinine 0.6 (0.5-1.5) mg/dL Estimated Creat Clear 35.26 Estimated GFR 89 ml/min Glucose 98 (60-115) mg/dL Calcium 9.0 (8.4-10.6) mg/dL Total Bilirubin 0.2 (0.1-1.5) mg/dL AST 35 (12-35) U/L ALT 20 (4-35) U/L Alkaline Phosphatase 113 (40-150) U/L Troponin I < 0.01 (0.01-0.04) ng/mL Total Protein 7.2 (6.0-8.3) g/dL Albumin 4.1 (3.3-5.0) g/dL Lipase 112 (23-300) U/L Urine Color Yellow (Yellow) Urine Appearance Clear (Clear) Urine pH 7.0 (5.0-8.5) Ur Specific [place] 1.010 (1.000-1.030) Urine Protein Negative (Negative) Urine Glucose (UA) Negative (Negative) Urine Ketones Negative (Negative) Urine Blood 2+ A (Negative) Urine Nitrite Negative (Negative) Urine Bilirubin Negative (Negative) Urine Urobilinogen 0.2 (0.2-1.0) Ur Leukocyte Esterase 1+ A (Negative) Urine RBC 2-5 A (0-2) Urine WBC 0-2 (0-5) Ur Squamous Epith Cells None (None-Few) Urine Bacteria None (None) Lab Acknowledgement Test Added POC Creatinine (0.6-1.3) mg/dl Imaging Data CT scan - head: Attestation: I have reviewed the pertinent imaging results. Radiologist's impression: 1. No evidence of acute infarction, intracranial hemorrhage, or mass-effect seen. Please note that all CT scans at this facility use dose modulation, iterative reconstruction, and/or weight-based dosing when appropriate to reduce radiation dose to as low as reasonably achievable. Dictated by: Herman Tarango MD @ 12/27/2024 00:00:28 CT scan abdomen and pelvis: Attestation: I have reviewed the pertinent imaging results. Radiologist's impression: 1. No definite CT evidence of acute pancreatitis. There is a questionable small focus of low-density in the uncinate process which could be due to edema or underlying lesion. Correlate with serum amylase and lipase. Consider further evaluation with nonemergent contrast-enhanced MRI. 2. Mild inflammatory changes of the distal esophagus suggesting esophagitis. 3. Mild bladder wall thickening. Correlate with urinalysis. 4. Diffuse hepatic steatosis. Please note that all CT scans at this facility use dose modulation, iterative reconstruction, and/or weight-based dosing when appropriate to reduce radiation dose to as low as reasonably achievable. Dictated by Rachel Wright MD @ 12/27/2024 12:46:38 AM ECG Data Attestation: I personally reviewed and interpreted this ECG as follows: Prior ECG tracings: not available for review Interpretation: Sinus bradycardia with a rate of 55 beats per minute, normal intervals, normal axis, no ST or T-wave abnormalities. Discharge Plan Discharge Clinical Impression: Acute hyponatremia Headache Qualifiers: Headache type: unspecified Headache chronicity pattern: acute headache Intractability: not intractable Qualified Code(s): R51.9 - Headache, unspecified Patient Disposition: Admitted As Observation Condition: Improved
--- OUTSIDE RECORDS SUMMARY | 2024-12-26 22:20 | XMS_ITS | Encounter Summary ---
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 [address] [place] [phone] Social History Tobacco Use Types Packs/Day Years Used Date Smoking Tobacco: Never Smokeless Tobacco: Never [facility] Utilities Answer Date Recorded In the [...] your living situation today? 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 [address] [place] [phone] 01/17/2025 8:00 AM CDT Office Visit Department of Ophthalmology in [place], [place] [address] [place] [phone] Angelique Chase M.D. [address] [place] [phone] 01/17/2025 1:30 PM CDT Ancillary Procedure Department of Ophthalmology in [place], [place] [address] [place] [phone] Angelique Chase M.D. [address] [place] [phone] documented as of this encounter Goals Goal Patient Goal Type Associated Problems Recent Progress Patient-Stated? Author Autogenerat ed Goal Care Plan Autogenerated Problem No Ny Kenney documented as of this encounter Visit Diagnoses Not on filedocumented in this encounter Additional Health Concerns Active Problems Noted Date Diagnosed Date Autogenerated Problem 10/10/2024 documented as of this encounter
--- OUTSIDE RECORDS SUMMARY | 2024-12-26 22:20 | XMS_ITS | Encounter Summary ---
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 [address] [place] [address] Social History Tobacco Use Types Packs/Day Years [...] your living situation today? 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 [address] [place] [phone] 01/17/2025 8:00 AM CDT Office Visit Department of Ophthalmology in [place], [place] [address] [place] [phone] Angelique Chase M.D. [address] [place] [phone] 01/17/2025 1:30 PM CDT Ancillary Procedure Department of Ophthalmology in [place], [place] [address] [place] [phone] Angelique Chase M.D. [address] [place] [phone] documented as of this encounter Goals Goal Patient Goal Type Associated Problems Recent Progress Patient-Stated? Author Autogenerat ed Goal Care Plan Autogenerated Problem No Ny Kenney documented as of this encounter Visit Diagnoses Not on filedocumented in this encounter Additional Health Concerns Active Problems Noted Date Diagnosed Date Autogenerated Problem 10/10/2024 documented as of this encounter
--- OUTSIDE RECORDS SUMMARY | 2024-12-26 22:20 | XMS_ITS | Encounter Summary ---
Author Organization [facility] Address [address] [place] [address] Care Team Providers Care Executive Assistant To General Counsel Name Role Phone Unavailable Primary Care Provider Unavailabl e Reason for Visit * Reason Onset Date Comments Med Refill 12/04/2024 Encounter Details Date Type Department Care Team (Late st Contact Info) Description 12/04/2024 Refill Department of Ophthalmology in [place], [place] [address] [place] [phone] Angelique Chase M.D. [address] [place] [phone] Med Refill Social History Tobacco Use Types Packs/Day Years Used Date Smoking Tobacco: Never Smokeless Tobacco: Never [facility] Utilities Answer Date Recorded In the past 12 months has [facility] electric, gas, oil, or water company threatened [...] your living situation today? 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 [address] [place] [phone] 01/17/2025 8:00 AM CDT Office Visit Department of Ophthalmology in [place], [place] [address] [place] [phone] Angelique Chase M.D. [address] [place] [phone] 01/17/2025 1:30 PM CDT Ancillary Procedure Department of Ophthalmology in [place], [place] [address] [place] [phone] Angelique Chase M.D. [address] [place] [phone] documented as of this encounter Goals Goal Patient Goal Type Associated Problems Recent Progress Patient-Stated? Author Autogenerat ed Goal Care Plan Autogenerated Problem No Ny Kenney documented as of this encounter Visit Diagnoses Not on filedocumented in this encounter Additional Health Concerns Active Problems Noted Date Diagnosed Date Autogenerated Problem 10/10/2024 documented as of this encounter
--- OUTSIDE RECORDS SUMMARY | 2024-12-26 22:20 | XMS_ITS | Patient Health Record ---
Author Organization [facility] Safia mckeon Billing Info Address [address] [place] [address] Care Team Providers Care Yeast Supervisor Name Role Phone Belen Willis Primary Care Provider RODNEY Hernandez Unavailable [phone] CHRIS ROY Unavailable [phone] Allergies Allergen (clinical drug ingredient) Drug/Non Drug Allergy documented on EMR Reaction Allergy Type Onset Date Status cephalexin Cephalexin Unknown Drug Allergy Activ e Reason For Referral No Information Medications Medication SIG (Take, Route, Frequency, Duration) Notes Start Date End Date Status Olmesartan Medoxomil 20 MG 1 tablet Oral ly Once a day for 90 day(s) Active Aleve 220 MG 1 tablet with food or milk as needed Orally every 12 hrs Not-Taking Vitamin B12 Active Sertraline HCl 25 MG 1 tablet Orally Onc e a day for 30 day(s) Active Meloxicam 15 MG 1 tablet Orally Once a day for 30 day(s) Active Levothyroxine Sodium 25 MCG 1 tablet in the morning on an empty stomach Orally Once a day Active Hydroxychloroquine Sulfate 200 MG as directed Orally Once a day Active Ergocalciferol 1.25 MG (98951 UT) 1 capsule Orally Active Xanax 0.25 MG 1 tablet Orally as needed Not-Taking Atorvastatin Calcium 10 MG 1 tablet Oral ly Once a day for 90 day(s) Active Restasis 0.05 % 1 drop into affected eye Ophthalmic Twice a day Not-Taking GenTeal 0.25-0.3 % 1 drop as needed Ophthalmic Four times a day Not-Taking Metoprolol Succinate ER 100 MG 1 tablet Orally Once a day for 90 day(s) Active Social History Tobacco Use: Social History Observation Description Date Details (start date - stop date) Never Smoker NA - NA Tobacco Status: Question Answer Notes Patient is a never smoker Problems Problem Type SNOMED Code ICD Code Onset Dates Problem Status W/U Status Risk Notes Problem Information temporarily unavailable Essential (primary) hypertension (I10) Active confirmed Blood pressure is well-controlled today and patient [...] reviewed there was no indications of ischemia. Problem 71442249 Hypertensive heart disease without heart failure (I11.9) Active confirmed PATIENT HISTORY OF HYPERTENSION THAT NO APPEARS TO BE UNCONTROLLED. 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 At that time the patient had chest pain likely related to some subendocardial ischemia associated to severe hypertension. Hypertension remains uncontrolled. We we are going to continue the current dose of beta-car and we are going to add valsartan 160 milligrams daily for better controlled. We will recheck blood pressure in 3 weeks. If needed we will further increase the dose of these medications. We will continue atorvastatin at current doses. Problem Information temporarily unavailable Palpitations (R00.2) Active confirmed No reoccurrence , patient did not have Holter monitor done and given the fact that she is not having any symptoms we will not pursue a Holter monitor at this time Problem Information temporarily unavailable Chest pain (R07.9) Active confirmed None reported. MPI study was negative Problem 28938602 Neck pain (M54.2) Active confirmed Problem 492850487 Dyslipidemia (E78.5) Active confirmed Patient on statin and tolerating well Problem Information temporarily unavailable Anxiety (F41.9) Active confirmed Problem Information temporarily unavailable Sjogren''s syndrome, with unspecified organ involvement (M35.00) Active confirmed Problem 29436898 Chest pain in adult (R07.9) Problem resolved confirmed Vital Signs Heart Rate 70 /min 03/27/2024 Medications erin ified verbally. ///DB Temperature 98.1 degrees Fahrenheit 03/27/2024 Medi cations verified verbally. ///DB Oximetry 93 03/27/2024 Medications erin ified verbally. ///DB Blood pressure diastolic 71 mm Hg 03/27/2024 Med ications verified verbally. ///DB Height 62 in 03/27/2024 Medications erin ified verbally. ///DB Blood pressure systolic 121 mm Hg 03/27/2024 Medi cations verified verbally. ///DB Weight 126 lbs 03/27/2024 Medications erin ified verbally. ///DB BMI 23.04 kg/m2 03/27/2024 Medications erin ified verbally. ///DB Encounters Encounter Location Date Provider Diagnosis [id number] [address] [address] 01/04/2024 RODNEY LYNCH [id number] [facility] [address] [facility] [place] [address] 03/27/2024 CHRIS ROY Essential (primary) hypertension I10 [...] was no indications of ischemia. I had ldrb-mp-pzqv contact with the patient. I have spent more than 50% of the time with the patient, preparing to see the patient, ordering tests, medications and procedures to included physical exam, counseling patient and coordinating care as well as reviewing and interpreting the test not separately reported. Along with counseling patient. Seen by Manuela LIN, Dr. Lynch 03/27/2024 Chest pain (ICD-10 - R07.9) None reported. MPI study was negative I had hiwd-xx-axno contact with the patient. I have spent [...] Holter monitor at this time I had yxkn-vo-tyqt contact with the patient. I have spent [...] on statin and tolerating well I had skdy-bq-ojar contact with the patient. I have spent more than 50% of the time with the patient, preparing to see the patient, ordering tests, medications and procedures to included physical exam, counseling patient and coordinating care as well as reviewing and interpreting the test not separately reported. Along with counseling patient. Seen by Dr. Paolo Roy NP 03/27/2024 Other I had hvog-uc-shgf contact with the patient. I have spent more than 50% of the time with the patient, preparing to see the patient, ordering tests, medications and procedures to included physical exam, counseling patient and coordinating care as well as reviewing and interpreting the test not separately reported. Along with counseling patient. Seen by Dr. Paolo Roy NP Plan Of Treatment Pending Test Test Name Order Date CT- ANGIO OF NECK ([facility]VC) ([id number]) 022 NUCLEAR STRESS TEST TREADMILL ([id number]) HOLTER- 72 HOUR 07/14/2023 Insurance Providers Payer Name Payer Address Payer Phone Subscriber Number Group Number Insured Name Patient Relationship to Insured Coverage Start Date Coverage End Date [employer] [address] [address] [place], [place] [id number] Melissa Delgadillo Self - patient is the insured 8 Medical (General) History Medical History History ICD Code Essential (primary) hypertension I10 Hypertensive heart disease without heart failure I11.9 Sjogrens syndrome, with unspecified orga n involvement M35.00 Anxiety F41.9 Dyslipidemia E78.5 Chest pain in adult (resolved 11/09/2018 ) R07.9 Neck pain M54.2 Surgical History Surgery Date(Month/Year) hysterectomy Appendectomy Hospitalization History Reason Date(Month/Year) readmitted into [facility] on 06/23/2018 due to continuing of chest pain not relieved with NTG spray, with associated nausea. EKG no acute changes, Troponin I unremarkable [facility] on 06/14/2018 due to onset of substernal chest pressure with high blood pressure. (207mmHg systolic)
--- OUTSIDE RECORDS SUMMARY | 2024-12-26 22:20 | XMS_ITS | Encounter Summary ---
Author Organization [facility] Address [address] [place] [address] Care Team Providers Care Leaf Blender Name Role Phone Unavailable Primary Care Provider Unavailabl e Reason for Referral * Outpatient (Routine) - Authorized Specialty Diagnoses / Procedures Referred By Oh t Referred To Contact Diagnoses Age Related Nuclear Cataract Bilateral Procedures Refraction Angelique Chase M.D. [address] [place] [phone] Phone: tel: fax: [facility] Referral ID Status Reason Start Date Expiration Date V isits Requested Visits Authorized [id number] Authorized 11/25/2024 02/25/2026 1 1 Encounter Details Date Type Department Care Team (Late st Contact Info) Description 11/25/2024 Orders Only Department of Ophthalmology in [place], [place] [address] [place] [phone] Angelique Chase M.D. 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 I have a [facility] place to live 09/22/2024 Comments Unknown Sex and Gender Information Value Date Recorded Sex Assigned at Female 09/22/2024 12:18 PM CDT Legal Sex Female 3:[address] Gender Identity Female 09/22/2024 12:18 PM CDT Sexual Orientation Straight 09/22/2024 12 :18 PM CDT documented as of this encounter Plan of Treatment Upcoming Encounters Date Type Department Care Team (Late st Contact Info) Description 01/17/2025 7:30 AM CDT Ancillary Procedure Department of Ophthalmology in [place], [place] [address] [place] [phone] Angelique Chase M.D. [address] [place] [phone] 01/17/2025 8:00 AM CDT Office Visit Department of Ophthalmology in [place], [place] [address] [place] [phone] Angelique Chase M.D. [address] [place] [phone] 01/17/2025 1:30 PM CDT Ancillary Procedure Department of Ophthalmology in [place], [place] [address] [place] [phone] Angelique Chase M.D. 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
--- OUTSIDE RECORDS SUMMARY | 2024-12-26 22:20 | XMS_ITS | Data Portability ---
Author Organization marilin Alberto[facility] Address [address] [facility] [place] [address] Assessment Encounter Date Assessment Date Assessment LastModified by Organization Details LastModified Time 07/28/2021 07/28/2021 81 yo woman with microscopic hematuria noted on recent UA. Urine culture was negative. Had microscopic blood on a UA about 6 months ago. She has no history gross hematuria. She denies family history of renal carcinoma. She has no tobacco history. Her highest risk factor is her age. Her recent renal ultrasound and her labs were reviewed and discussed with the patient today. On exam, noticed a urethral caruncle with significant vulvovaginal and urethral atrophy. She has petechial lesions around the meatus. This can definitely be the source of microscopic hematuria, especially with a random or clean catch sample. Offered patient cystoscopic evaluation now vs start vaginal estrogen cream therapy (to area at introitus and around meatus) for 3 months and repeat her UA with a cath (bypass the caruncle at the meatus). If she has microscopic hematuria still present despite addressing her atrophy, can proceed with cysto at that time. She would like to do the vaginal estrogen therapy and reassess in 3 months. We also had a discussion regarding constipation and treatment options for her. She used to be more physically active but had recent loss of her spouse and has not been exercising/walki ng. 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 Lab urinalysis , microscopi c - cath specimen 2021 [facility], [address], [place], [address], 11:30:53 culture, urine 2021 [facility], [address], [address], [place], [address], 09:27:46 urinalysis , complete 2021 [facility], [address], [place], [address], 09:27:45 Referral None recorded. Procedures nerve conduction study/EMG, lower extremity (PROC) - left leg 2021 [email or web address] Not available 11:28:05 Surgeries None recorded. Imaging XR, lumbosacra l spine, 2 or 3 view 2021 [email or web address] In-Office Order, Internal Use Only DO Not Attach Compendium DO Not Attach Compendium, Do Not Delete/merge, [id number] 13:04:31 MRI, lumbar spine, w/o contrast - lumbar spine 2021 [email or web address] Not available 09:10:42 Medication Orders Florastor 250 mg capsule [address] [place] [address], [address] [place] [address], [address], 3 16:53:00 meloxicam 15 mg tablet 2021 [place] [address], [address] [place] [address], [address], 2 13:14:25 Aspercreme (lidocaine HCl) 4 % topical liquid roll-on 2021 [place] [address], [address] [place] [address], [address], 13:04:31 estradiol 0.01% (0.1 mg/gram) vaginal cream 2021 [place] [address], [address] [place] [address], [address], 12:26:45 Patient TargetsNo targets recorded. Patient Instructions Encounter Date Encounter Id Patient Instructions Last Modified By Organization Details Last Modified Time 07/28/2021 [id number] A healthy lifestyle: care instructions [email or web address] Not available 07/28/2021 12:26:36 11/18/2021 [id number] total time spent discussing plan of care: 15 minutes [email or web address] Not available 11/18/2021 11:33:23 03/02/2022 [id number] Eddi Alford scribing for Dr.Antonio Cohen, signed by Eddi AlfordDate:03/02 I, Dr.Antonio Cohen, performed the above service scribed on my behalf and I confirm the accuracy of the documentation written by the scribe. Date:03/02/2022 [email or web address] Not available 03/02/2022 11:27:13 04/26/2022 [id number] Omayra harvey scribing for Dr.Antonio Cohen, signed by Omayra Irelandate:04/26/2022 I, Dr.Antonio Cohen, performed the above service scribed on my behalf and I confirm the accuracy of the documentation written by the scribe. Date:04/26/2022 [email or web address] Not available 04/26/2022 12:33:19 12/13/2022 [id number] lactose free t education [email or web address] Not available 12/14/2022 01:24:07 low fructose t education [email or web address] Not available 12/14/2022 01:24:07 nonsteroidal anti-inflammatory drugs (nsaids): care instructions [email or web address] Not available 12/14/2022 01:24:07 If symptoms worsen, I recommended that the patient proceed to nearest hospital or ER. I also advised that the patient inform our clinic of any worsening condition. Patient verbalized understanding and agreed with the plan stulachan Not available 12/14/2022 01:21:30 Will call back i f GI symptoms return, otherwise follow up as needed. [email or web address] Not available 12/14/2022 01:23:49 Reason for Referral None Reported. Results Created Date Observation Date Name Description Value Unit Range Abnormal Flag Note LastModifiedBy Organization Detail LastModifiedTime 11/19/19 22 11/21/2021 URINA LYSIS , COMPL ETE color YELLOW yellow normal Not Available [facility] [address] [place], [address], 11/21/2021 09:27:45 11/19/19 22 11/21/2021 URINA LYSIS , COMPL ETE appearance CLEAR clear normal Not Available [facility] [address] [place], [address], 11/21/2021 09:27:45 11/19/19 22 11/21/2021 URINA LYSIS , COMPL ETE specific gravity 1.007 1.001- 1.035 normal Not Available [facility] [address] [place], [address], 11/21/2021 09:27:45 11/19/19 22 11/21/2021 URINA LYSIS , COMPL ETE pH 7.0 5.0-8. 0 normal Not Available [facility] [address] [place] [address], [address], 11/21/2021 09:27:45 11/19/19 22 11/21/2021 URINA LYSIS , COMPL ETE glucose NEGATI VE negati ve normal Not Available [facility] [address] [place] [address], [address], 11/21/2021 09:27:45 11/19/19 22 11/21/2021 URINA LYSIS , COMPL ETE bilirubin NEGATI VE negati ve normal Not Available [facility] [address] [place] [address], [address], 11/21/2021 09:27:45 11/19/19 22 11/21/2021 URINA LYSIS , COMPL ETE ketones NEGATI VE negati ve normal Not Available [facility] [address] [place] [address], [address], 11/21/2021 09:27:45 11/19/19 22 11/21/2021 URINA LYSIS , COMPL ETE occult blood NEGATI VE negati ve normal Not Available [facility] [address] [place] [address], [address], 11/21/2021 09:27:45 11/19/19 22 11/21/2021 URINA LYSIS , COMPL ETE protein NEGATI VE negati ve normal Not Available [facility] [address] [place] [address], [address], 11/21/2021 09:27:45 11/19/19 22 11/21/2021 URINA LYSIS , COMPL ETE nitrite NEGATI VE negati ve normal Not Available [facility] [address] [place] [address], [address], 11/21/2021 09:27:45 11/19/19 22 11/21/2021 URINA LYSIS , COMPL ETE leukocyte esterase NEGATI VE negati ve normal Not Available [facility] [address], [address], 11/21/2021 09:27:45 11/19/19 22 11/21/2021 URINA LYSIS , COMPL ETE WBC NONE SEEN /hpf < or = 5 normal Not Available [facility] [address] [place] [address], [address], 11/21/2021 09:27:45 11/19/19 22 11/21/2021 URINA LYSIS , COMPL ETE RBC NONE SEEN /hpf < or = 2 normal Not Available [facility] - [address], [address], 11/21/2021 09:27:45 11/19/19 22 11/21/2021 URINA LYSIS , COMPL ETE squamous epithelial cells NONE SEEN /hpf < or = 5 normal Not Available [facility] [address] [place] [address], [address], 11/21/2021 09:27:45 11/19/19 22 11/21/2021 URINA LYSIS , COMPL ETE bacteria NONE SEEN /hpf none seen normal Not Available [facility] - [address], [address], 11/21/2021 09:27:45 11/19/19 22 11/21/2021 URINA LYSIS , COMPL ETE hyaline cast NONE SEEN /lpf none seen normal Not Available [facility] - [address], [address], 11/21/2021 09:27:45 11/19/19 22 11/21/2021 CULTU RE, URINE , SPECI AL culture, urine, special SEE NOTE CULTU RE, URINE , SPECI AL Micro Numbe r: [id number] Test Statu s: Final Speci men Sourc e: Urine , tra ter Speci men Quali ty: Adequ ate Resul t: No Growt h Not Available [facility] [address] [facility], [place], [address], 11/21/2021 09:27:46 03/02/20 22 XR, lumbo sacra l spine , 2 or 3 view No observ ation record ed. [email or web address] In-Office Order Internal Use Only DO Not Attach Compendium DO Not Attach Compendium, Do Not Delete/merge, [id number] 03/02/2022 10:48:56 12/14/19 23 09/30/2020 US, abdom en, compl ete No observ ation record ed. [email or web address] Not Available 12/13 16:25:44 Result Notes None recorded. Problems Name Problem SNOMED Code Status Onset Date Resolution Date Notes Provider Name and Address Organization Details Recorded Time No current problems or disability 981699604 Active Vesna Corbett [facility] 0 15:46:06 Osteoarthri tis of right knee joint 0218984188623 00 Active 2019 Rasheed Clarke MD [address] [place] [address], [phone], [facility] 0 16:12:18 Problem Notes None recorded. Procedures Surgical History Date Name Laterality Status Provider Name and Address Organization Details Recorded Time 11/19/19 22 In and Out Straight Catheterization - Female completed Erna Cooper MD [address] [place] [address],[place] [address], [place], [address], [facility] 11/18/2021 11:29:02 09/11/19 20 Most Recent Mammogram completed Kadie Gonzalez [facility] 07/28/2021 11:50:31 07/01/19 20 Intra-articular Knee Steroid Injection completed Rasheed Clarke MD [address] [place] [address],[place] [address], [place], [address], [facility] 07/01/2019 16:12:48 10/18/19 15 MRI of lumbar spine completed Mary Kingsley [facility] 07/22/2019 19:15:18 10/17/19 15 Dxa bone density axial completed Mary Kingsley [facility] 07/22/2019 19:19:37 09/12/19 12 radiographic imaging procedure completed Mary Kingsley [facility] 07/22/2019 19:21:09 Appendectomy completed Vesna Corbett [facility] 07/01/2019 15:47:05 procedure on knee completed Vesna Corbett [facility] 07/01/2019 15:47:15 hysterectomy completed Mary Kingsley [facility] 07/22/2019 18:57:24 Knee arthroscopy/surgery completed Mary Kingsley [facility] 07/22/2019 18:57:41 Imaging Results None recorded. Procedure Notes None recorded. Medical Equipment None Reported. Allergies Allergen ID Allergen Name Allergen Category Reaction Reaction Severity Criticality Documentation Date Start Date Code Code System Note Provider Name and Address Organization Details Recorded Time 351263 cephalexi n medicatio n respirato ry distress moderate Not available 07/01/2019 2231 RxNorm diffi culty breat kyrie Mary Kingsley [facility] 0 18:55:15 Medications Name Sig Start Date Stop Date Status Note LastModified by Organization Details LastModified Time amoxicillin 500 mg capsule TAKE 1 CAPSULE BY MOUTH TWICE DAILY FOR 10 DAYS 07/28 completed Not Available Not Available Not Available tizanidine 2 mg tablet TAKE 1 TABLET BY MOUTH TWICE DAILY NEEDED active Not Available Not Available No t Available atorvastati n 10 mg tablet TAKE 1 TABLET BY MOUTH AT BEDTIME active Not Available Not Available No t Available azithromyci n 250 mg tablet 07/28 completed Not Available Not Available Not Available meloxicam 15 mg tablet TAKE 1 TABLET BY MOUTH ONCE DAILY active Not Available Not Available No t Available prednisone 20 mg tablet TAKE 1 TABLET BY MOUTH ONCE DAILY FOR 5 DAYS 07/28 completed Not Available Not Available Not Available metoprolol succinate ER 100 mg tablet,exte nded release 24 hr TAKE 1 TABLET BY MOUTH ONCE DAILY active Not Available Not Available No t Available meclizine 12.5 mg tablet active Not Available Not Available Not Available metronidazo le 500 mg tablet TAKE 1 TABLET BY MOUTH THREE TIMES DAILY FOR 10 DAYS active Not Available Not Available No t Available levothyroxi ne 25 mcg tablet TAKE 1 TABLET BY MOUTH ONCE DAILY active Not Available Not Available No t Available alprazolam 0.25 mg tablet TAKE 1 TABLET BY MOUTH TWICE DAILY active Not Available Not Available No t Available sertraline 25 mg tablet TAKE 1 TABLET BY MOUTH ONCE DAILY 07/28 completed Not Available Not Available Not Available omeprazole 20 mg capsule,del ayed release active Not Available Not Available Not Available hydroxychlo roquine 200 mg tablet TAKE 1.5 TABLETS BY MOUTH ONCE DAILY active Not Available Not Available No t Available estradiol 0.01% (0.1 mg/gram) vaginal cream APPLY 1 INCH RIBBON OF CREAM TO VAGINAL AND URETHRAL OPENING THREE TIMES A WEEK AT BEDTIME active Not Available Not Available No t Available sertraline 50 mg tablet TAKE 1 TABLET BY MOUTH ONCE DAILY active Not Available Not Available No t Available olmesartan 20 mg tablet TAKE 1 TABLET BY MOUTH ONCE DAILY active Not Available Not Available No t Available Restasis 0.05 % eye drops in a dropperette INSTILL 1 DROP INTO EACH EYE EVERY 12 HOURS active Not Available Not Available No t Available Florastor 250 mg capsule Take 1 capsule every day by oral route for 30 days. 2022 active Not Available Not Available Not Avai lable Prevnar 13 (PF) 0.5 mL intramuscul ar syringe ADM 0.5ML IM UTD 07/28 completed Not Available Not Available Not Available Shingrix (PF) 50 mcg/0.5 mL intramuscul ar suspension, kit PHARMACIS T ADMINISTE RED IMMUNIZAT ION ADMINISTE RED AT TIME OF DISPENSIN G 07/28 completed Not Available Not Available Not Available Fluzone High-Dose 2019-20 (PF) 180 mcg/0.5 mL intramuscul ar syringe ADM 0.5ML IM UTD 07/28 completed Not Available Not Available Not Available Aspercreme (lidocaine HCl) 4 % topical liquid roll-on Apply 4 mL by topical route. 2021 active Not Available Not Available Not Avai lable Vitals Date Recorded Body weight Body mass index (BMI) Body height Heart rate Respiratory rate Systolic And Diastolic Provider Name and Address Organization Details Last Updated DateTime 2 08760.0 8 g 21.3 kg/m2 160.02 cm 60 /min 16 /min 155/72 mm[Hg] Kadie Goznalez [facility] 2 11:42:14 Date Recorded Body height Body mass index (BMI) Body weight Heart rate Systolic And Diastolic Provider Name and Address Organization Details Last Updated DateTime 11/18/2021 160.02 cm 21.1 kg/m2 80221.49 g 58 /min 147/68 mm[Hg] Tish Silva [facility] 2 11:16:16 Date Recorded Body height Body mass index (BMI) Body weight Heart rate Respiratory rate Body temperature Systolic And Diastolic Provider Name and Address Organization Details Last Updated DateTime 3 160.02 cm 21.8 kg/m2 57461.8 6 g 58 /min 16 /min 97.3 [degF] 149/77 mm[Hg] Arian Salvador [facility] 3 16:25:25 Date Recorded Body height Body mass index (BMI) Body weight Provider Name and Address Organization Details Last Updated DateTime 03/02/2022 160.02 cm 21.1 kg/m2 69829.49 g Eddi Alford [facility] 03/02/2022 11:19:12 Date Recorded Body height Body mass index (BMI) Body weight Provider Name and Address Organization Details Last Updated DateTime 04/26/2022 160.02 cm 21.1 kg/m2 43555.49 g Shannon Locke [facility] 04/26/2022 11:58:36 Social History Question Answer Notes LastModified by Organizat ion Details LastModified Time Tobacco Smoking Status [facility] 15:46:34 Do You Have An Advance Directive? Yes Information not available 07/01/2019 Are You Blind Or Do You Have Difficulty Seeing? No Information not available 07/28/2021 Is Blood Transfusion Acceptable In An Emergency? Yes Information not available 12/13/2022 What Is Your Level Of Caffeine Consumption? Occasional Information not available 07/28/2021 How Much Tobacco Do You Chew? None Information not available 07/01/2019 Are You Deaf Or Do You Have Serious Difficulty Hearing? No Information not available 07/28/2021 What Type Of Diet Are You Following? REGULAR Information not available 07/28/2021 How Many Days In The Past Year Have You Had A Heavy Drinking Consumption (4+ Female, 5+ Male)? 0 Information no t available 07/01/2019 Which Of Your Hands Is Dominant? Right Information not available 07/28/2021 If Pulse Oximetry Was Done: Is The Patient's Sp02 Less Than 93% On Room Air? No Information not available 07/28/2021 What Was The Date Of Your Most Recent Tobacco Screening? 04/26/2022 [email or web address] Information not available 04/26/2022 Do You Have Any Pets? No Information not available 07/28/2021 What Is Your Relationship Status? Information not available 07/28/2021 Do You Have Smoke And Carbon Monoxide Detectors In Your Home? Yes Information not available 07/28/2021 Are You Passively Exposed To Smoke? No Information no t available 07/28/2021 How Much Tobacco Do You Smoke? No Information not available 07/01/2019 Has Tobacco Cessation Counseling Been Provided? Yes Information not available 07/28/2021 On What Date Was Tobacco Cessation Counseling Provided? 07/28/2021 Information not available 07/28/2021 How Many Years Have You Smoked Tobacco? 0 Information not available 07/01/2019 Are You Currently In School? No Information not available 07/28/2021 Sex: Female Functional Status Question Answer Note LastModified by Organizat ion Details LastModified Time Do you use any illicit or recreational drugs? No Information not available 07/28/2021 What is your level of alcohol consumption? None [email or web address] Information not available 07/22/2019 Do you or have you ever used smokeless tobacco? Never used smokeless tobacco Information not available 07/01/2019 Are you currently employed? No Information not available 07/28/2021 Urinary incontinence assessment performed? No Information not available 07/01/2019 Are you able to care for yourself? Yes Information not available 07/28/2021 Do you have difficulty dressing or bathing? No Information not available 12/13/2022 Do you or have you ever used e-cigarettes or vape? Never used electronic cigarettes Information not available 07/01/2019 What is your exercise level? None Information not available 07/28/2021 Mental Status Question Answer Note LastModified by Organization D etails LastModified Time Do you feel stressed (tense, restless, nervous, or anxious, or unable to sleep at night)? [id number] Information not available 07/28/2021 Family History Relationship Description Onset Age of this Age Resolved Age Notes LastModified by Organization Details LastModified Time Mother Rheumatoid arthritis Not available 07/01 15:46:17 Sister Family history of Hypertension Not available 15:46:26 Unspecified Relation Heart disease [email or web address] Not available 2019 18:56:24 Father Arthritis Deceas ed [email or web address] Not available 07/22/2019 18:56:45 Medical History Condition Response High Cholesterol (Hyperlipidemia) Y None Reported Y High Blood Pressure (Hypertension) Y Gynecological History Statement/Question Response Excessive or scanty bleeding? N Abnormal Pap N Have you ever been treated for an abnorm al pap smear? N STIs/STDs N HPV Vaccine N Abnormal MMG N Age at menopause 48 Most Recent Mammogram 09/11/2019 Age at Menarche 15 Current Control Method Hysterectom y Planning within next year N If Post Menopausal, Age at Menopause 48 Hot flushes Y Sexually Active? N RN ALLERGY Surgeries Yes Menses Monthly N Have you ever had a pelvic infection? N Obstetrics History GPAL:G 3 P 3 0 0 3 Type Value Full Term 3 Living 3 Total 3 Past Encounters Encounter ID Performer Location Encounter Start Date Encounter Closed Date Diagnosis/Indication Diagnosis SNOMED-CT Code Diagnosis ICD10 Code Diagnosis Note [id number] Rasheed Clarke MD [facility] [address] [address] 07/01/2019 14:31:53 07/01/2019 16:25:05 Osteoarthritis of right knee joint 5006749654 75154 M17.11 [id number] MD MONICA [facility] [address] [place] [address] 07/28/2021 11:35:09 07/28/2021 13:24:33 Asymptomatic microscopic hematuria 9576453968 7388636 R31.21 Body mass index 20-24 - normal 991887375 Z68.21 Urethral caruncle 257276 3 N36.2 Atrophy of vagina 543634 009 N95.2 [id number] MD Vadim Chin [facility] [address] [place] [address] 11/18/2021 10:57:11 11/18/2021 12:43:21 Microscopic hematuria 523980987 R31.29 Has a large urethral caruncle and atrophy that could have been cause of microscopi c hematuria on previous testing. Agreed to cath UA to see if we could bypass caruncle and atrophic changes for the urine analysis. Cath specimen obtained today and will be sent for complete UA, micro and culture - if microscopi c hematuria present, plan is to proceed with cysto evaluation . She agrees. Will call with results when available. Will then discuss follow up plan based on results. Atrophy of vagina 976243 009 N95.2 Patient was not comfortabl e using vaginal estrogen. Since she was started on it to try and improve tissue for UA collection s, not because of atrophic symptoms, she may discontinu e. Can do cath UA collection to assure she has a submitted clean sample for her analysis. [id number] MD MONICA [facility] [place] [address] [address] 03/02/2022 10:39:06 03/02/2022 11:48:15 Lumbar radiculopathy 169792341 M54.16 left leg Bilateral osteoarthritis of knees 8499175810 49913 M17.0 [id number] MD MONICA [facility] [place] [address] [address] 04/26/2022 11:15:26 04/26/2022 13:07:23 Lumbar radiculopathy 020426245 M54.16 left leg Bilateral osteoarthritis of knees 3311018911 04842 M17.0 Lumbar spondylosis 00487 0009 M47.896 [id number] Shola Kapoor MD [facility] [address] [facility],[address] [place] [address] 12/13/2022 16:18:02 12/13/2022 16:56:24 Acute gastroenteritis 63907581 K52.9 Resolved symptoms after Flagyl treatment by PCP. Acute diarrhea 267084680 R19.7 Symptoms resolved. No alarm symptoms. Advised to call back if symptoms return. Abdominal bloating 64384 9008 R14.0 Use Florastor QD. 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-inflammatory drug 8497271242 00531 Z79.1 Chronic intermitte nt use of Meloxicam for DJD Health Concerns Section Related Observation LastModified by Organization Detai ls LastModified Time None Recorded Concern Status LastModified by Organization Details LastModified Time None Recorded Advance Directives Directive Y: Payers Insurance Date Sequence Insurance Name Policy Number Policy Silva Covered Member ID Silva Member ID Guarantor Name 12/13/2022 1 [facility] (MEDICARE REPLACEMENT/A DVANTAGE - PPO) [id number] Melissa P Elie [id number] Melissa Elie 12/13/2022 1 [facility] (MEDICARE REPLACEMENT/A DVANTAGE - PPO) [id number] Melissa P Elie [id number] Melissa Elie Notes Date Note Type Note Provider Name and Address Organization Details Recorded Time 07/28/2021 text/html This is a 81 yea r old G 3 P 3, with a history of a hysterectomy, not on HRT, who was referred for evaluation of microscopic hematuria. Her recent UA showed 5-10 RBC's with a negative urine culture. She has already had a renal ultrasound that was negative (). The patient reports Erna Cooper MD [address] [facility],[address], [place], [id number] 07/28/2021 12:39:41 11/18/2021 text/html 81 yo woman who was initially with microscopic hematuria noted on recent UA. Urine culture was negative. Had microscopic blood on a UA about 6 months ago. She has no history gross hematuria. She denies family history of renal carcinoma. She has no tobacco history. Her highest risk factor is her age. Her recent renal ultrasound and her labs were reviewed and discussed with the patient at her initial visit. On exam, I noticed a urethral caruncle with significant vulvovaginal and urethral atrophy. She had petechial lesions around the meatus. This can definitely be the source of microscopic hematuria, especially with a random or clean catch sample. Offered patient cystoscopic evaluation now vs starting vaginal estrogen cream therapy (to area at introitus and around meatus) for 3 months and repeat her UA with a cath (bypass the caruncle at the meatus). If she has microscopic hematuria still present despite addressing her atrophy, can proceed with cysto at that time. The patient reports that she only used the vaginal estrogen a few weeks but then did not feel comfortable using it based on package insert. Has no other bothersome atrophy sxs but would like to see if she is still showing blood in her UA with our planned catheterization. Erna Cooper MD [address] [place] [address],[address], [place], [place], [address] [place] [address] 11/18/2021 11:33:53 03/02/2022 text/html Pain down left leg--right leg normal--history of previous bursitis left hip Saman Ruddy Cohen MD [address] [place] [address],[address], [place], [id number], [facility] 03/02/2022 13:28:01 04/26/2022 text/html Lower BackReport ed bypatient.Associat ed Symptoms:no weakness; no numbness; no tingling; no swelling; no redness; no warmth; no ecchymosis; no catching/locking; no popping/clicking; no buckling; no grinding; no instability; no radiation down leg; no drainage; no fever; no chills; no weight loss; no change in bowel/bladder habits Pain down left leg--right leg normal--history of previous bursitis left hip Follow up for MRI results of lumbar spine Saman Cohen MD [address] [place] [address],[address], [place], [id number], [facility] 04/26/2022 13:14:28 12/13/2022 text/html 82 yo female presents for initial visit.Referred by PCP Patient reports 2 weeks history of diarrhea. She was prescribe Immodium, Flagyl by PCP. States her GIsymptoms improved and further issues anymore. Denies nausea/vomiting, dysphagia, abdominal pain, melena, hematochezia, jaundice, and weight loss. 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 Reports normal colonoscopy by Dr Cooper about 10 years ago. PMH include HTN, HLD, DJD, hypothyroidism. PSH include appendectomy, hysterectomy, knee surgery. Family history negative for CRC, IBD and IBS Shola Kapoor MD [address] [place] [address],[address], [place], [id number], [facility] 12/14/2022 01:24:18 OBGyn Episode No OBEpisode recorded.
--- OUTSIDE RECORDS SUMMARY | 2024-12-26 22:20 | XMS_ITS | Data Portability ---
Author Organization [facility] [place], [employer] Address [address] [facility] [place] [address] Care Team Providers Care [place] Opener Name Role Phone JEAN-PAUL BROWN Primary Care Provider [phone] Assessment Encounter Date Assessment Date Assessment LastModified by Organization Details LastModified Time 03/14/2016 03/14/2016 75 years old female with Sjogren's syndrome, and dyslipidemia, was referred for evaluation of leg swelling, after her ECG was checked out to be abnormal. She reports most of her swelling is in the right foot. She denies CP, SOB, palpitations, or dizziness. She denies orthopnea or PND. No coughing, wheezing fever, or chills. No limitations to her activities. Her ECG done at the time showed NSR, with non-specific ST-T changes. He is very active, and exercises regularly. Will schedule an echo, ETT and RLe venous Doppler. RTO in 6-7 weeks. Not available 03/14/2016 16:37:29 04/20/2016 04/20/2016 76 years old female with Sjogren's syndrome, and dyslipidemia, was referred for evaluation of leg swelling, after her ECG was checked out to be abnormal. She reports most of her swelling is in the right foot. She denies CP, SOB, palpitations, or dizziness. She denies orthopnea or PND. No coughing, wheezing fever, or chills. No limitations to her activities. Her ECG done at the time showed NSR, with non-specific ST-T changes. He is very active, and exercises regularly. Patient returned for follow up and reports feeling fine. Her ETT, and LE venous Doppler were unremarkable. Her echocardiogram, showed EF 60-65%, and diastolic dysfunction. RTO in 6 months. Not available 04/20/2016 14:32:26 09/25/2017 09/25/2017 76 years old female with Sjogren's syndrome, and dyslipidemia, was referred for evaluation of leg swelling, after her ECG was checked out to be abnormal. She reports most of her swelling is in the right foot. She denies CP, SOB, palpitations, or dizziness. She denies orthopnea or PND. No coughing, wheezing fever, or chills. No limitations to her activities. Her ECG done at the time showed NSR, with non-specific ST-T changes. He is very active, and exercises regularly. In 2016, her ETT, and LE venous Doppler were unremarkable. Her echocardiogram, showed EF 60-65%, and diastolic dysfunction. Patient presents with reports of 3 episodes of palpitations that occurred about a month ago, lasting several minutes in duration, with associated chest discomfort. She also reports that she is experiencing daily episodes of mid left pectoral chest discomfort, 2-3/10 intensity, that occurs with activity, lasting only a few minutes in duration; sudden onset and relieved suddenly with rest. Her EKG today shows SB with non-specific st-t wave changes. Her blood pressure is well controlled. We will do a Holter monitor testing and repeat her exercise stress testing. RTO 4 weeks. Not available 09/25/2017 17:34:36 10/26/2017 10/26/2017 77 years old female with Sjogren's syndrome, and dyslipidemia, was referred for evaluation of leg swelling, after her ECG was checked out to be abnormal. She reports most of her swelling is in the right foot. She denies CP, SOB, palpitations, or dizziness. She denies orthopnea or PND. No coughing, wheezing fever, or chills. No limitations to her activities. Her ECG done at the time showed NSR, with non-specific ST-T changes. He is very active, and exercises regularly. In 2016, her ETT, and LE venous Doppler were unremarkable. Her echocardiogram, showed EF 60-65%, and diastolic dysfunction. Patient presents with reports of 3 episodes of palpitations that occurred about a month ago, lasting several minutes in duration, with associated chest discomfort. She also reports that she is experiencing daily episodes of mid left pectoral chest discomfort, 2-3/10 intensity, that occurs with activity, lasting only a few minutes in duration; sudden onset and relieved suddenly with rest. Her EKG today shows SR with non-specific st-t wave changes. Her blood pressure is well controlled. Patient returned for follow up and reports feeling fine. No CP, palpitations or SOB. Her BP is normal today at 128/68. Her Holter showed paroxysmal episodes of A-Fib. Her ETT was unremarkable for ischemia because target HR was not reached and had only 6-7 minutes of exercise time. RTO in 6 months Not available 10/26/2017 15:58:29 Plan of Treatment Reminders Order Date Submit Date Provider Last Modified By Organization Details Last Modified Time Details Appointments None recorded. Lab None recorded. Referral None recorded. Procedures holter monitor placement (PROC) 2017 018 INDY Not available 8 15:16:42 Surgeries None recorded. Imaging exercise stress test 2017 018 INDY In-Office Order, Internal Use Only DO Not Attach Compendium DO Not Attach Compendium, Do Not Delete/merge, [id number] 15:57:06 electrocard iogram 2017 018 INDY In-Office Order, Internal Use Only DO Not Attach Compendium DO Not Attach Compendium, Do Not Delete/merge, [id number] 15:58:48 US, duplex, venous, lower extremity 2015 016 [email or web address] In-Office Order, Internal Use Only DO Not Attach Compendium DO Not Attach Compendium, Do Not Delete/merge, [id number] 12:04:58 electrocard iogram 2015 016 [email or web address] In-Office Order, Internal Use Only DO Not Attach Compendium DO Not Attach Compendium, Do Not Delete/merge, [id number] 11:51:42 exercise stress test 2015 016 Not available 6 04:18:19 US, echocardiog vidal, transthorac ic, complete, w/ color flow 2015 016 In-Office Order, Internal Use Only DO Not Attach Compendium DO Not Attach Compendium, Do Not Delete/merge, [id number] 04:18:19 Medication Orders None recorded. Patient TargetsNo targets recorded. Patient InstructionsNo instructions recorded. Reason for Referral None Reported. Results Created Date Observation Date Name Description Value Unit Range Abnormal Flag Note LastModifiedBy Organization Detail LastModifiedTime 03/14/20 16 [facility] am No observ ation record ed. Not Available 2015 16:24:18 04/21/20 16 04/15/2016 exerc ise stres s test No observ ation record ed. Not Available 2017 17:20:42 05/18/20 16 04/15/2016 US, echoc ardio gram, trans thora cic, compl ete, w/ color flow No observ ation record ed. In-Office Order Internal Use Only DO Not Attach Compendium DO Not Attach Compendium, Do Not Delete/merge, [id number] 09/25/2017 17:20:41 05/18/20 16 04/15/2016 US, echoc ardio gram, trans thora cic, compl ete, w/ color flow No observ ation record ed. In-Office Order Internal Use Only DO Not Attach Compendium DO Not Attach Compendium, Do Not Delete/merge, [id number] 09/25/2017 17:20:41 09/26/19 18 [facility] am No observ ation record ed. Not Available 2017 15:41:03 11/11/19 18 [address] or [facility] ment (PROC ) No observ ation record ed. [email or web address] Not Available 2017 15:16:56 11/17/19 18 exerc ise stres s test No observ ation record ed. [email or web address] In-Office Order Internal Use Only DO Not Attach Compendium DO Not Attach Compendium, Do Not Delete/merge, [id number] 11/16/2017 18:49:58 01/09/20 18 10/11/2017 exerc ise stres s test No observ ation record ed. In-Office Order Internal Use Only DO Not Attach Compendium DO Not Attach Compendium, Do Not Delete/merge, [id number] 01/08/2018 11:57:36 Result Notes None recorded. Problems Name Problem SNOMED Code Status Onset Date Resolution Date Notes Provider Name and Address Organization Details Recorded Time Pain in lower limb 89218978 Completed 201503/14/2016 Peggy Perez MD [address], [place], [address], [facility] [place] 6 16:26:46 Dyslipidem ia 464510171 Active 2015 Peggy Perez MD [address], [place], [address], [facility] 6 16:22:55 Swelling of lower leg 810235091 Active 2015 Peggy Perez MD [address] [place], [address], [facility] 6 16:27:10 Sj gren's syndrome 01805002 Active 2015 Peggy Perez MD [address], [place], [address], [facility] 6 16:28:51 Electrocar diogram abnormal 637896274 Active 2015 Peggy Perez MD [address], [place], [address], [facility] 6 16:32:33 Chest pain 77870467 Active 2017 Peggy Perez MD [address], [place], [address], [facility] 8 17:34:46 Intermitte nt palpitatio ns 199303259 Active 2017 Peggy Perez MD [address], [place], [address], [facility] 8 17:34:54 Problem Notes None recorded. Procedures Surgical History Date Name Laterality Status Provider Name and Address Organization Details Recorded Time Hysterectomy completed Anibal Driscoll [facility] 03/14/2016 15:44:26 Appendectomy completed Anibal Driscoll [facility] 03/14/2016 15:44:35 Imaging Results None recorded. Procedure Notes None recorded. Medical Equipment None Reported. Allergies Allergen ID Allergen Name Allergen Category Reaction Reaction Severity Criticality Documentation Date Start Date Code Code System Note Provider Name and Address Organization Details Recorded Time 43251 cephalexi n medicatio n respirato ry distress Not available Not available 03/14/2016 223 [facility] 6 15:41:00 Medications Name Sig Start Date Stop Date Status Note LastModified by Organization Details LastModified Time neomycin-polymyx in-hydrocort 3.5 mg/mL-10,000 unit/mL-1 % ear solution 09/25 completed Not Available Not Available Not Available atorvastatin 10 mg tablet active Not Available Not Available No t Available azithromycin 250 mg tablet 09/25 completed Not Available Not Available Not Available metoprolol succinate ER 50 mg tablet,extended release 24 hr active Not Available Not Availabl e Not Available ondansetron HCl 8 mg tablet 09/25 completed Not Available Not Available Not Available meloxicam 15 mg tablet 09/25 completed Not Available Not Available Not Available metronidazole 250 mg tablet 09/25 completed Not Available Not Available Not Available clindamycin HCl 150 mg capsule 09/25 completed Not Available Not Available Not Available meclizine 12.5 mg tablet active Not Available Not Available No t Available ciprofloxacin 250 mg tablet 09/25 completed Not Available Not Available Not Available ciprofloxacin 500 mg tablet 09/25 completed Not Available Not Available Not Available sulfamethoxazole 800 mg-trimethoprim 160 mg tablet active Not Available Not Availabl e Not Available lovastatin 10 mg tablet 03/14 completed Not Available Not Available Not Available acyclovir 800 mg tablet 09/25 completed Not Available Not Available Not Available alprazolam 0.25 mg tablet active Not Available Not Available No t Available lisinopril 10 mg tablet 09/25 completed Not Available Not Available Not Available losartan 25 mg tablet 09/25 completed Not Available Not Available Not Available sertraline 25 mg tablet active Not Available Not Available Not Available pravastatin 20 mg tablet 09/25 completed Not Available Not Available Not Available lisinopril 5 mg tablet 09/25 completed Not Available Not Available Not Available hydroxychloroqui ne 200 mg tablet active Not Available Not Avail able Not Available ibuprofen 600 mg tablet 09/25 completed Not Available Not Available Not Available naproxen 500 mg tablet active Not Available Not Available Not Available Lotemax 0.5 % eye drops,suspension 09/25 completed Not Available Not Available Not Available Aleve prn active Not Available Not Availa ble Not Available Xanax active Not Available Not Availa ble Not Available Pataday 0.2 % eye drops 09/25 completed Not Available Not Available Not Available Pazeo 0.7 % eye drops active Not Available Not Available Not Available Vitals Date Recorded Body height Body mass index (BMI) Body weight Heart rate Oxygen saturation Oxygen saturation in Arterial blood by Pulse oximetry Respiratory rate Systolic And Diastolic Provider Name and Address Organization Details Last Updated DateTime 8 160.02 cm 22.5 kg/m2 50167.2 3 g 60 /min 97 % 97 % 18 /min 118/66 mm[Hg] [facility] [place] 8 16:11:48 Date Recorded Body height Body mass index (BMI) Body weight Heart rate Oxygen saturation Oxygen saturation in Arterial blood by Pulse oximetry Respiratory rate Body temperature Systolic And Diastolic Provider Name and Address Organization Details Last Updated DateTime 8 160.02 cm 22.7 kg/m2 67479.4 6 g 58 /min 96 % 96 % 18 /min 97.8 [degF] 128/68 mm[Hg] [facility] [place] 8 15:35:43 Date Recorded Body height Body weight Body mass index (BMI) Respiratory rate Heart rate Oxygen saturation Oxygen saturation in Arterial blood by Pulse oximetry Systolic And Diastolic Provider Name and Address Organization Details Last Updated DateTime 6 160.02 cm 96518.6 g 23.2 kg/m2 20 /min 63 /min 96 % 96 % 115/75 mm[Hg] Anibal Driscoll [facility] 6 15:39:49 Date Recorded Body height Body weight Body mass index (BMI) Heart rate Oxygen saturation Oxygen saturation in Arterial blood by Pulse oximetry Respiratory rate Systolic And Diastolic Provider Name and Address Organization Details Last Updated DateTime 6 160.02 cm 94202.2 9 g 23 kg/m2 64 /min 97 % 97 % 16 /min 149/74 mm[Hg] Anu Estrada [facility] 6 13:58:05 Social History Question Answer Notes LastModified by Organizat ion Details LastModified Time Tobacco Smoking Status Never Smoker Anibal [facility] 03/14/2016 15:43:40 What Is Your Level Of Caffeine Consumption? Moderate Information not available 03/14/2016 What Type Of Diet Are You Following? REGULAR Information not available 03/14/2016 Live Alone Or With Others? With Others Information not available 03/14/2016 Marital Status joyomias Informatio n not available 03/14/2016 What Was The Date Of Your Most Recent Tobacco Screening? 10/26/2017 Information not available 01/16/2019 How Many Children Do You Have? 3 Information not available 03/14/2016 General Stress Level Medium Information not available 03/14/2016 Sex: Unknown Functional Status Question Answer Note LastModified by Organization D etails LastModified Time What is your level of alcohol consumption? None Information not available 03/14/2016 What is your occupation? retired Information not available 03/14/2016 What is your exercise level? Moderate Information not available 03/14/2016 Mental Status None recorded. Family History Relationship Description Onset Age of this Age Resolved Age Notes LastModified by Organization Details LastModified Time Father Myocardial infarction gonzalo Not available 03/14 15:42:57 Sister Hypercholest khadra gonzalo Not available 2015 15:43:33 Medical History No medical history recorded. Gynecological HistoryNo gynecological history recorded. Obstetrics History GPAL:G 0 P 0 0 0 0 Past Encounters Encounter ID Performer Location Encounter Start Date Encounter Closed Date Diagnosis/Indication Diagnosis SNOMED-CT Code Diagnosis ICD10 Code Diagnosis Note [id number] Peggy Perez MD OFFICE [address] [place] [address] 03/14/2016 15:23:28 03/14/2016 16:41:56 Screening for cardiovascular system disease 245396251 Z13.6 Electrocar diogram abnormal 944815835 R94.31 Sj gren's syndrome 31166830 M35.00 Swelling of lower leg 44 6266914 R22.41 Dyslipidemia 261617787 E 78.5 [id number] Peggy Perez MD OFFICE [address] [place] [address] 04/20/2016 12:57:49 04/20/2016 14:38:44 Sj gren's syndrome 26852954 M35.00 Swelling of lower leg 44 3164687 R22.41 Dyslipidemia 087405272 E 78.5 Electrocar diogram abnormal 033728772 R94.31 [id number] Peggy Perez MD OFFICE [address] [place] [address] 09/25/2017 15:57:33 09/25/2017 17:37:44 Sj gren's syndrome 00056225 M35.00 Swelling of lower leg 44 4768641 R22.41 Dyslipidemia 459031533 E 78.5 Electrocar diogram abnormal 827089669 R94.31 Intermitte nt palpitations 639352259 R00.2 Chest pain 04533153 R07. 9 [id number] Peggy Perez MD OFFICE [address] [place] [address] 10/26/2017 15:16:47 10/26/2017 16:01:13 Intermittent palpitations 283270795 R00.2 Chest pain 41459999 R07. 9 Swelling of lower leg 44 8091400 R22.41 Sj gren's syndrome 83816812 M35.00 Dyslipidemia 455311992 E 78.5 Electrocar diogram abnormal 474562574 R94.31 Health Concerns Section Related Observation LastModified by Organization Detai ls LastModified Time None Recorded Concern Status LastModified by Organization Details LastModified Time None Recorded Advance Directives Directive None Recorded Payers Insurance Date Sequence Insurance Name Policy Number Policy Silva Covered Member ID Silva Member ID Guarantor Name 03/09/2016 1 [facility] (PPO) Melissa Delgadillo [id number] Melissa Delgadillo 06/14/2018 1 [facility] - MEDICARE COMPLETE (MEDICARE REPLACEMENT PPO) [id number] Melissa Delgadillo [id number] Melissa Delgadillo Notes Date Note Type Note Provider Name and Address Organization Details Recorded Time 03/14/2016 text/html 75 years old female with Sjogren's syndrome, and dyslipidemia, was referred for evaluation of leg swelling, after her ECG was checked out to be abnormal. She reports most of her swelling is in the right foot. She denies CP, SOB, palpitations, or dizziness. She denies orthopnea or PND. No coughing, wheezing fever, or chills. No limitations to her activities. Her ECG done at the time showed NSR, with non-specific ST-T changes. He is very active, and exercises regularly. Peggy Perez MD [address] [place], [address], [facility] [place] 03/14/2016 16:40:37 04/20/2016 text/html 76 years old female with Sjogren's syndrome, and dyslipidemia, was referred for evaluation of leg swelling, after her ECG was checked out to be abnormal. She reports most of her swelling is in the right foot. She denies CP, SOB, palpitations, or dizziness. She denies orthopnea or PND. No coughing, wheezing fever, or chills. No limitations to her activities. Her ECG done at the time showed NSR, with non-specific ST-T changes. He is very active, and exercises regularly. 04/20/16: Patient returned for follow up and reports feeling fine. Her ETT, and LE venous Doppler were unremarkable. Her echocardiogram, showed EF 60-65%, and diastolic dysfunction. Peggy Perez MD [address] [place], [address], [facility] [place] 04/20/2016 14:33:47 09/25/2017 text/html 76 years old female with Sjogren's syndrome, and dyslipidemia, was referred for evaluation of leg swelling, after her ECG was checked out to be abnormal. She reports most of her swelling is in the right foot. She denies CP, SOB, palpitations, or dizziness. She denies orthopnea or PND. No coughing, wheezing fever, or chills. No limitations to her activities. Her ECG done at the time showed NSR, with non-specific ST-T changes. He is very active, and exercises regularly. 04/20/16: Patient returned for follow up and reports feeling fine. Her ETT, and LE venous Doppler were unremarkable. Her echocardiogram, showed EF 60-65%, and diastolic dysfunction. 09/25/17: Patient presents with reports of 3 episodes of palpitations that occurred about a month ago, lasting several minutes in duration, with associated chest discomfort. She also reports that she is experiencing daily episodes of mid left pectoral chest discomfort, 2-3/10 intensity, that occurs with activity, lasting only a few minutes in duration; sudden onset and relieved suddenly with rest. Her EKG today shows SB with non-specific st-t wave changes. Her blood pressure is well controlled. Peggy Perez MD [address] [place], [address], [facility] [place] 09/25/2017 17:37:19 10/26/2017 text/html 77 years old female with Sjogren's syndrome, and dyslipidemia, was referred for evaluation of leg swelling, after her ECG was checked out to be abnormal. She reports most of her swelling is in the right foot. She denies CP, SOB, palpitations, or dizziness. She denies orthopnea or PND. No coughing, wheezing fever, or chills. No limitations to her activities. Her ECG done at the time showed NSR, with non-specific ST-T changes. He is very active, and exercises regularly. 04/20/16: Patient returned for follow up and reports feeling fine. Her ETT, and LE venous Doppler were unremarkable. Her echocardiogram, showed EF 60-65%, and diastolic dysfunction. 09/25/17: Patient presents with reports of 3 episodes of palpitations that occurred about a month ago, lasting several minutes in duration, with associated chest discomfort. She also reports that she is experiencing daily episodes of mid left pectoral chest discomfort, 2-3/10 intensity, that occurs with activity, lasting only a few minutes in duration; sudden onset and relieved suddenly with rest. Her EKG today shows SB with non-specific st-t wave changes. Her blood pressure is well controlled. 10/26/17: Patient returned for follow up and reports feeling fine. No CP, palpitations or SOB. Her BP is normal today at 128/68. Her Holter showed paroxysmal episodes of A-Fib. Her ETT was unremarkable for ischemia because target HR was not reached and had only 6-7 minutes of exercise time. Peggy Perez MD [address] [place], [address], [facility] [place] 10/26/2017 15:58:43 OBGyn Episode No OBEpisode recorded.
--- OUTSIDE RECORDS SUMMARY | 2024-12-26 22:20 | XMS_ITS | Clinical Summary ---
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 For routine questions regarding patient records, call [phone] during business hours, M-F 8:00 AM - 5:00 PM Central Time. Record requests for emergency care only can be directed to [phone] at any time.[facility] Allergies Active Allergy Reactions Criticality Noted Date Comments Cephalexin Other (see comments) 02/15/2023 Medications alcaftadine (Lastacaft) 0.25 % ophthalmic solution Administer 1 drop into both eyes daily. 3 Active peg 400-propylene glycol, PF, (Systane) 0.4-0.3 % ophthalmic solution Administer 1 drop into both eyes 3 (three) times a day as needed for dry eyes. Active metoprolol succinate (Toprol XL) 100 mg 24 hr tablet Take 100 mg by mouth daily. Active olmesartan (Benicar) 20 mg tablet Take 20 mg by mouth daily. 3 Active hydroxychloroq uine (PlaqueniL) 200 mg tablet Take 1.5 tablets by mouth daily. Active atorvastatin (Lipitor) 10 mg tablet Take 10 mg by mouth daily. Active sertraline (Zoloft) 25 mg tablet Take 25 mg by mouth daily. Active levothyroxine 25 mcg tablet Take 25 mcg by mouth daily before morning meal. Active cyanocobalamin , vitamin B-12, (VITAMIN B-12 ORAL) Take 2 tablets by mouth daily. Active cholecalcifero l, vitamin D3, (VITAMIN D3 ORAL) Take 1 tablet by mouth daily. Active meloxicam (Mobic) 15 mg tablet Take 15 mg by mouth daily. Active moxifloxacin (Vigamox) 0.5 % ophthalmic solution Instill 1 drop four times a day to both eyes starting 3 days prior to surgery 3 mL 12/04/2024 1:14 PM CDT 5 Active ketorolac (Acular) 0.5 % ophthalmic solution Administer 1 drop into the right eye 4 (four) times a day. 5 mL 12/19/2024 3:45 PM CDT 5 Active prednisoLONE acetate (Pred Forte) 1 % ophthalmic suspension Administer 1 drop into the right eye 4 (four) times a day. 5 mL 12/19/2024 3:45 PM CDT 5 Active prednisoLONE acetate (Pred Forte) 1 % ophthalmic suspension Administer 1 drop into the right eye 4 (four) times a day. 5 mL 12/04/2024 1:14 PM CDT 5 12/20/19 25 Discontinu ed(Reorder ) ketorolac (Acular) 0.5 % ophthalmic solution Administer 1 drop into the right eye 4 (four) times a day. 5 mL 12/05/2024 4:15 PM CDT 5 12/20/19 25 Discontinu ed(Reorder ) Encounters Date Type Department Care Team Description 12/20/2024 Orders Only Department of Ophthalmology in [place], [place] [address] [place] [phone] Angelique Chase M.D. 12/19/2024 1:00 PM CDT Office Visit Department of Ophthalmology in [place], [place] [address] [place] [address] Angelique Chase M.D. Intraocular Lens Implant Status Post (Primary Dx) 12/18/2024 7:30 AM CDT - 12/18/2024 8:22 AM CDT Surgery Out[facility] in [place], [place] [address] [place] [phone] Angelique Chase M.D. PHACOEMULSIFICATION CATARACT WITH INTRAOCULAR LENS IMPLANTATION 12/18/2024 6:35 AM CDT Ancillary Procedure Department of General Surgery 12/18/2024 6:35 AM CDT - 12/18/2024 8:40 AM CDT Hospital Encounter Outpatient Procedure Center in [place], [place] [address] [place] [phone] Angelique Chase M.D. Discharge Disposition: Home or Self Care 12/18/2024 Orders Only Department of Ophthalmology in [place], [place] [address] [place] [phone] Regi Carson M.D. 12/05/2024 3:45 PM CDT Office Visit Department of Ophthalmology in [place], [place] [address] [place] [phone] Angelique Chase M.D. Intraocular Lens Implant Status Post (Primary Dx) 12/04/2024 10:00 AM CDT Ancillary Procedure Department of General Surgery 12/04/2024 9:55 AM CDT - 12/04/2024 10:47 AM CDT Surgery Out[facility] in [place], [place] [address] [place] [phone] Angelique Chase M.D. PHACOEMULSIFICATION CATARACT WITH INTRAOCULAR LENS IMPLANTATION 12/04/2024 8:52 AM CDT - 12/04/2024 11:45 AM CDT Hospital Encounter Outpatient Procedure Center in [place], [place] [address] [place] [phone] Angelique Chase M.D. Discharge Disposition: Home or Self Care 12/04/2024 Refill Department of Ophthalmology in [place], [place] [address] [place] [phone] Angelique Chase M.D. Med Refill 12/04/2024 Orders Only Department of Ophthalmology in [address] [phone] Angelique Chase M.D. 11/25/2024 Orders Only Department of Ophthalmology in [place], [place] [address] [place] [phone] Angelique Chase M.D. Age Related Nuclear Cataract Bilateral (Primary Dx) from Last 3 Months Social History Tobacco Use Types Packs/Day Years Used Date Smoking Tobacco: Never Smokeless Tobacco: Never [facility] Utilities Answer Date Recorded In the [...] your living situation today? 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 [address] [place] [phone] 01/17/2025 8:00 AM CDT Office Visit Department of Ophthalmology in [place], [place] [address] [place] [phone] Angelique Chase M.D. [address] [place] [phone] 01/17/2025 1:30 PM CDT Ancillary Procedure Department of Ophthalmology in [place], [place] [address] [place] [address] Angelique Chase M.D. [address] [place] [phone] Health Maintenance Due Date Last Done Comments Creatinine Level (Kidney Fun ction Test) 1941 Potassium Level 1941 Sodium Level 1941 Thyroid Stimulating Hormone (TSH) test for thyroid function 1941 COVID-19 Vaccine (#1) 1946 DTaP,Tdap,and Td Vaccines (1 - Tdap) 1960 Pneumococcal vaccine (50+ ye ars) (1 of 2 - PCV) 1960 Zoster Vaccines (1 of 2) 1960 RSV vaccine - (32-3 6 weeks) or 60+ years (1 - 1-dose 75+ series) 2016 Depression Screening (Annual PHQ-2) 06/26/2024 Influenza Vaccine (#1) 2025 Fall Risk Screen (Annual) Completed 12/18/2024 IPV Vaccines Aged Out No longer eligi ble based on patient's age to complete this topic Goals Goal Patient Goal Type Associated Problems Recent Progress Patient-Stated? Author Autogenerat ed Goal Care Plan Autogenerated Problem No [place] Medical Devices Implanted Type Area Child Protective Investigator Device Identifier Shelf Expiration Date Model / Serial / Lot Lens Tcn Mnfcl Dcb00 +28.5d - [id number] - [id number] Implanted:Qty : 1 on 12/04/2024 by Angelique Chase M.D. at [facility] Ocular Lens Right: Eye [employer] (Previously [employer]) 03/07/2027 [id number] / [id number] / Lens Tcn Mnfcl Dcb00 +27.5d - [id number] - [id number] Implanted:Qty : 1 on 12/18/2024 by Angelique Chase M.D. at [facility] Ocular Lens Left: Eye [employer] (Previously [employer]) 07/12/2027 [id number] / [id number] / Procedures Procedure Name Priority Date/Time Associated Diagnosis Comments ADULT OXYGEN THERAPY Routine 12/18/2024 7:26 AM CDT ADULT OXYGEN THERAPY Routine 12/18/2024 7:26 AM CDT PHACOEMULSIFICATION CATARACT WITH INTRAOCULAR LENS IMPLANTATION 12/18/2024 7:21 AM CDT Combined Forms Age Related Cataract Left Eye SURGERY IMAGE EXAM Routine 12/18/2024 6: 35 AM CDT PHACOEMULSIFICATION CATARACT WITH INTRAOCULAR LENS IMPLANTATION 12/04/2024 10:04 AM CDT Age Related Nuclear Cataract Bilateral SURGERY IMAGE EXAM Routine 12/04/2024 10 :00 AM CDT ADULT OXYGEN THERAPY Routine 12/04/2024 9:40 AM CDT from Last 3 Months Results * Oph-Surgery Image Exam (12/18/2024 6:35 AM CDT) Only the most recent of2 resultswithin the time period is included. 12/18/2024 6:32 AM CDT Narrative IIMS - 12/18/2024 7:38 AM CDT This order has been created and auto-finalized to support the import of images acquired without order. The clinical documentation to support these images can be found on the encounter that produced images. us Provider Not In System IMG NON RAD IMAGING PROCE MELVIN Final Result IIMS NA from Last 3 Months Additional Health Concerns Active Problems Noted Date Diagnosed Date Autogenerated Problem 10/10/2024 Insurance [facility]
--- OUTSIDE RECORDS SUMMARY | 2024-12-26 22:21 | XMS_ITS | Encounter Summary ---
Author Organization [facility] Address [address] [place] [address] Care Team Providers Care Employment Agency Manager Name Role Phone Unavailable Primary Care Provider Unavailabl e Encounter Details Date Type Department Care Team (Late st Contact Info) Description 12/20/2024 Orders Only Department of Ophthalmology in [place], [place] [address] [place] [phone] Angelique Chase M.D. [address] [place] [address] Social History Tobacco Use Types Packs/Day Years Used Date Smoking Tobacco: Never Smokeless Tobacco: Never [facility] Utilities Answer Date Recorded In the [...] your living situation today? 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 [address] [place] [phone] 01/17/2025 8:00 AM CDT Office Visit Department of Ophthalmology in [place], [place] [address] [place] [phone] Angelique Chase M.D. [address] [place] [phone] 01/17/2025 1:30 PM CDT Ancillary Procedure Department of Ophthalmology in [place], [place] [address] [place] [phone] Angelique Chase M.D. [address] [place] [phone] documented as of this encounter Goals Goal Patient Goal Type Associated Problems Recent Progress Patient-Stated? Author Autogenerat ed Goal Care Plan Autogenerated Problem No Ny Kenney documented as of this encounter Visit Diagnoses Not on filedocumented in this encounter Additional Health Concerns Active Problems Noted Date Diagnosed Date Autogenerated Problem 10/10/2024 documented as of this encounter
--- OUTSIDE RECORDS SUMMARY | 2024-12-26 22:22 | XMS_ITS | Patient Health Record ---
Author Organization [facility] Address [address] [place], [place] [id number] Care Team Providers Care Scrap Crusher Name Role Phone JEAN-PAUL BROWN Unavailable [phone] Reason For Referral No Information Plan Of Treatment No Information Insurance Providers Payer Name Payer Address Payer Phone Subscriber Number Group Number Insured Name Patient Relationship to Insured Coverage Start Date Coverage End Date [employer] MEDICARE [place] [address] [address] [place] [phone] [id number] Melissa Delgadillo Self - patient is the insured 0
[2024-12-26] MEDS: METOCLOPRAMIDE HCL 5 MG/ML INJ 10 MG IVP (22:33)
[2024-12-26 22:36] LABS: Appearance Urine Clear (Clear)
[2024-12-26 22:47] LABS: Albumin* 4.1 g/dL (3.3-5.0); Chloride* 92 mmol/L (96-114); Potassium* 4.2 mmol/L (3.6-5.1); Sodium* 125 mmol/L (135-149)
[2024-12-26 22:50] LABS: Alanine Aminotransferase* 20 U/L (4-35); Alkaline Phosphatase* 113 U/L (40-150); Anion Gap 5 mEq/L (7-15); Aspartate Amino Transferase* 35 U/L (12-35); Bilirubin Total* 0.2 mg/dL (0.1-1.5); Blood Urea Nitrogen* 19 mg/dL (7-30); Calcium* 9.0 mg/dL (8.4-10.6); Carbon Dioxide* 28 mmol/L (20-32); Creatinine* 0.6 mg/dL (0.5-1.5); Est. Creatinine Clearance* 35.26; Estimated Glomerular Filt Rate 89 ml/min; Glucose* 98 mg/dL (60-115); Total Protein* 7.2 g/dL (6.0-8.3)
[2024-12-26 22:56] LABS: Creatinine, Point-of-Care* 0.7 mg/dl (0.6-1.3)
[2024-12-26 23:01] VITALS: BP 148/70; PULSE 58; RESP 16; TEMP 36.8; O2SAT 98
[2024-12-26 23:11] LABS: Hematocrit 35.3 % (33.0-51.0); Hemoglobin* 12.2 gm/dL (12.0-16.0); Immature Granulocytes Abs Auto 0.00 K/uL (0.00-0.30); Immature Granulocytes Pct Auto 0.0 %; Mean Corpuscular HGB Conc 35 gm/dL (32-36); Mean Corpuscular Hemoglobin 30 pg (26-34); Mean Corpuscular Volume 86 fL (80-100); RDW Coefficient of Variation % 12.2 % (11.5-15.5); Red Blood Count 4.12 m/uL (4.00-5.20); White Blood Count* 4.37 K/uL (4.50-11.00)
[2024-12-26 23:19] LABS: Lymphocytes Absolute Auto 1.90 K/uL (0.90-2.90); Slide Review Reflex No
[2024-12-27 02:36] VITALS: BMI 22.9
[2024-12-27 02:55] VITALS: BP 143/66; PULSE 60; RESP 16; TEMP 36.4; O2SAT 98
--- NOTE | 2024-12-27 03:06 | W.PM.TELEH&P ---
Telehealth- H&P: HPI History of Present Illness Date Seen: 12/27/24 Chief complaint: High BP, headache Narrative: Melissa Delgadillo is seen as an Interactive Telehealth visit. 84-year-old female with past medical history significant for hypothyroidism, hypertension sertraline use who presents to hospital with headache Nausea. She is a resident of [facility] and was visiting family on vacation. When she described a headache and nausea, family checked her blood pressure and it was noted to be markedly elevated at 191/90. She then presented to the emergency room. In the emergency room fortunately her blood pressures improved to 148/70. She was administered some medications to get her headache improved and she felt a lot better. Incidentally however per lab check found her sodium was 125. CT of the head was negative. CT of her abdomen is negative. She did not have any complaints at that time. Upon review, the patient has had a prior diagnosis of hyponatremia although it was felt to be stable. Patient's member remembered that her primary care provider did mention low sodium's. She is on sertraline and has been on this for 5 years. Recently the patient was diagnosed with hypothyroidism and was just started on levothyroxine although the patient is not. She does have a history of hypertension for which she is on an ARB, metoprolol. While in the room, the patient had multiple episodes of diarrhea. She denies any recent antibiotic use. CT of her abdomen was negative for any inflammation. Patient states that she does have diarrhea that is associate with anxiety. Although she has noted a recent uptick in her diarrhea. Review of Systems Const: Reports: fatigue ENMT: Denies: neck pain or vertigo Cardio: Denies: chest pain or shortness of breath with exertion Resp: Denies: shortness of breath GI: Reports: nausea; Denies: abdominal pain : Denies: painful urination Musculo: Denies: back pain, neck pain, extremity pain or extremity swelling Neuro: Reports: headache; Denies: numbness in extremities, weakness in extremities, lack of coordination, dizziness, vertigo, confusion, behavioral changes, slurred speech, difficulty communicating thoughts, seizure-like activity or involuntary movements Psych: Denies: anxiety Endo: Reports: fatigue Meds Home Medications and Allergies Allergies Allergy/AdvReac Type Severity Reaction Status Date / Time cephalexin AdvReac Intermediate Verified 12/26/24 23:39 Exam Narrative Exam Narrative: Physical Exam GENERAL: ?vital signs reviewed, well developed and nourished, in no distress HEENT: pupils are equal round and reactive to light, extraocular movements are grossly within normal limits and oral mucosa is moist. NECK: Supple without lymphadenopathy or thyromegaly according to nursing staff examination observation HEART: Regular rate and rhythm without any rubs, murmurs, or gallops. LUNGS: Clear to auscultation bilaterally with good air movement throughout ABDOMEN: Observation from nurse assisted exam, abdomen appears soft, nontender, and nondistended with Positive bowel sounds noted. EXTREMITIES: Strength and sensation is observed to be grossly within normal limits in the upper and lower extremities.? No focal strength deficit is observed. SKIN:? Observed warm and dry with color normal Const Vital Signs, click to edit/add: Vital Signs - 24 hr 12/26/24 21:36 12/26/24 23:01 Temperature 97.8 F 98.3 F Pulse Rate [Pulse Oximeter] 54 L 58 L Respiratory Rate 18 16 Blood Pressure [Right Upper Arm] 148/70 H Pulse Oximetry 100 98 Oxygen Delivery Method Room Air Room Air Hospitalist - H&P: Result Labs Labs: Short CBC 12/26/24 Range/Units 22:00 WBC 4.37 L (4.50-11.00) K/uL Hgb 12.2 (12.0-16.0) gm/dL Hct 35.3 (33.0-51.0) % Plt Count 281 (140-440) K/uL BMP 12/26/24 22:30 Sodium 125 L Potassium 4.2 Chloride 92 L Carbon Dioxide 28 BUN 19 Creatinine 0.6 Glucose 98 Calcium 9.0 Cardiac Enzymes 12/26/24 Range/Units 22:30 Troponin I < 0.01 (0.01-0.04) ng/mL Liver Function 12/26/24 Range/Units 22:30 Total Bilirubin 0.2 (0.1-1.5) mg/dL AST 35 (12-35) U/L ALT 20 (4-35) U/L Alkaline Phosphatase 113 (40-150) U/L Albumin 4.1 (3.3-5.0) g/dL Urine 12/26/24 Range/Units 22:29 Urine Color Yellow (Yellow) Urine Appearance Clear (Clear) Urine pH 7.0 (5.0-8.5) Ur Specific Thatcher 1.010 (1.000-1.030) Urine Protein Negative (Negative) Urine Glucose (UA) Negative (Negative) Assessment and Plan Assessment and plan (1) Headache: Status: Acute (2) Acute hyponatremia: Status: Acute (3) Diarrhea: Status: Acute Plan This patient is being admitted to the hospital secondary to hyponatremia. Patient's serum sodium is likely acute on chronic hyponatremia. Her serum sodium was 125. She is asymptomatic at this time. I suspect she likely has low sodium and is chronically. 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 She is only on low-dose sertraline. I would not recommend stopping her sertraline, although I would recommend her primary to address that when she gets back home to [facility]. In the meantime I have put her on a fluid restriction 1500 mL/day. Will also continue with normal saline at this time for the ER. I will check this comprehensive metabolic panel in the morning. Anticipate her sodium should improve slightly. I do not think she needs to stay in the hospital until it is fully corrected. She could potentially follow-up outpatient. Headache: The patient initially presented to hospital she was having elevated blood pressure and headache. Her blood pressures have improved. Her headaches improved. I do have as needed labetalol in case her blood pressures go back up. History of hypertension: Will continue metoprolol, ARB. Recent diagnosis of hypothyroidism: Unclear what her doses. Will await pharmacy reconciliation. DVT prophylaxis SCDs. Patient ambulatory telehealth Visit: Todays History and Physical is via interactive telehealth by Dr Davi Pink MD The Patient is located [facility], physician is located at [facility]. Nursing staff assisted in the patient's exam. The visit being done today meets criteria for a telehealth visit and the patient or patient's parent/guardian is aware the visit is a telehealth visit. Camera Start time 230 Camera End time 315 Telehealth: Statement Statement Telehealth Visit: Today's History and Physical is provided via interactive telehealth by Davi Pink MD.? Patient is located at [facility].? Provider is located at [facility].? Nursing staff assisted with the patient's exam. The visit being done today meets criteria for a telehealth visit and the patient or patient?s parent/guardian is aware the visit is a telehealth visit.
[2024-12-27] MEDS: DIPHENOXYLATE-ATROP 2.5-0.025 TABLET 1 TAB PO (03:58)
--- NOTE | 2024-12-27 06:29 | PC.NURSE ---
Shift note ([id number]): Patient admitted at 0232. Accompanied by daughter Sharda. Pt pleasant, alert and oriented. Ambulates with stand by assist to help with IV pole. Reported some abdominal cramping with loose stools; otherwise denied pain. Given PRN Lomotil for multiple loose stools.?
[2024-12-27] MEDS: OMEPRAZOLE 20 MG CAPSULE DR 40 MG PO (06:44)
[2024-12-27 08:05] VITALS: BP 121/59; PULSE 52; RESP 16; TEMP 36.4; O2SAT 98
[2024-12-27 08:34] LABS: Albumin* 3.8 g/dL (3.3-5.0); Chloride* 101 mmol/L (96-114); Potassium* 4.3 mmol/L (3.6-5.1); Sodium* 131 mmol/L (135-149)
[2024-12-27 08:37] LABS: Alanine Aminotransferase* 18 U/L (4-35); Alkaline Phosphatase* 88 U/L (40-150); Anion Gap 3 mEq/L (7-15); Aspartate Amino Transferase* 32 U/L (12-35); Bilirubin Total* 0.3 mg/dL (0.1-1.5); Blood Urea Nitrogen* 13 mg/dL (7-30); Calcium* 8.6 mg/dL (8.4-10.6); Carbon Dioxide* 27 mmol/L (20-32); Creatinine* 0.6 mg/dL (0.5-1.5); Est. Creatinine Clearance* 35.26; Estimated Glomerular Filt Rate 89 ml/min; Glucose* 87 mg/dL (60-115); Total Protein* 6.5 g/dL (6.0-8.3)
[2024-12-27 08:46] VITALS: O2SAT 99
[2024-12-27] MEDS: LEVOTHYROXINE 25 MCG TABLET PO (08:48)
[2024-12-27] MEDS: HYDROXYCHLOROQUINE 200 MG TABLET 300 MG PO (08:49)
[2024-12-27] MEDS: METOPROLOL SUCCINATE (XL) 100 MG TAB PO (08:49)
[2024-12-27] MEDS: SERTRALINE 50 MG TABLET PO (08:49)
[2024-12-27] MEDS: OLMESARTAN MEDOXOMIL 20 MG TABLET PO (08:50)
[2024-12-27] MEDS: SODIUM CHLORIDE 0.9 % (FLUSH) 10 ML SYRINGE 5 ML IVF (08:50)
--- NOTE | 2024-12-27 09:01 | P.DS_ITS ---
DS: Providers Provider Date Seen: 12/27/24 Date of admission: 12/27/24 02:26 Primary care physician: Not a Local Provider Admitting Clinician: Leticia Colindres MD Attending Physician on discharge: Kristin Mehta [facility], PA-C [place] Hospitalist DS: Diagnosis Discharge Diagnosis (1) Acute hyponatremia: Status: Acute Problem details: Acute on chronic, recurrent per patient report though she does not know what her baseline is. Suspected SIADH. Possibly medication related, sertraline Sodium on admission 125 Fluid restriction 1500 mL Has been on NS 100ml/hr overnight -discontinued Sodium is 131 this morning. Symptoms including headache and nausea have completely resolved, no new or worsening symptoms. Normotensive Serum and urine osmolality pending DDAVP now and recheck sodium at noon is 130 Discharge with recommendations to continue electrolyte replacement over the hot, humid weekend. Recheck sodium if new or worsening/returning symptoms. Outpatient follow-up with PCP for ongoing management, medication considerations (2) Headache: Status: Acute Problem details: Resolved (3) Diarrhea: Status: Acute Problem details: Acute on chronic, recurrent. Patient reports frequent loose stools under stress. No recent antibiotic use or known infectious exposure C difficile negative (4) Hypothyroidism: Status: Acute Problem details: Continue levothyroxine (5) Hypertension: Status: Acute Problem details: Pressures normotensive this morning. Continue home medications DS: Summary Hospital Course Hospital Course: Course of care and details as noted above. Admitted overnight for symptomatic hyponatremia. Headache and nausea have completely resolved. Now normotensive. Sodium on admission 125, increased to 131 following normal saline replacement and fluid restriction. DDAVP given in the morning, recheck sodium is 130. Outpatient follow-up with PCP when she returns to [place]. Remainder of chronic medical comorbidities were monitored and managed with home medications. Status at Discharge Functional status at discharge: independent ambulation Overall status at discharge: patient is back to baseline Time Spent with Patient Time attestation: Total time spent providing and/or coordinating discharge services: Time spent: Greater than 30 minutes Exam Narrative: Exam Narrative: PHYSICAL EXAM General: Pleasant, conversant, NAD HEENT: Normocephalic, atraumatic, sclera white, EOMI, oral mucosa moist Cardiovascular: RRR, S1S2. No pitting edema Pulmonary: CTA bilaterally without rhonchi, rales, expiratory wheezes. No dyspnea on room air Abdominal: Soft, nondistended, NTTP Neurological: Alert, answering questions appropriately, cranial nerves intact, no focal findings Extremities: No gross joint deformity or swelling. AROMI. Neurovascularly intact Skin: Warm, dry. Const: Vital Signs, click to edit/add: Vital Signs - 24 hr 12/26/24 21:36 12/26/24 23:01 12/27/24 02:55 Temperature 97.8 F 98.3 F 97.5 F L Pulse Rate [Pulse Oximeter] 54 L 58 L 60 Respiratory Rate 18 16 16 Blood Pressure [Ri ght Arm] 143/66 H Blood Pressure [Ri ght Upper Arm] 148/70 H Pulse Oximetry 100 98 98 Oxygen Delivery Me thod Room Air Room Air Room Air 12/27/24 08:05 12/27/24 08:46 Temperature 97.6 F Pulse Rate [Pulse Oximeter] 52 L Respiratory Rate 16 Blood Pressure [Ri ght Arm] 121/59 L Blood Pressure [Ri ght Upper Arm] Pulse Oximetry 98 99 Oxygen Delivery Me thod Room Air DS: Data Data Completed and Pending Pending studies at discharge: Osmolality Labs on day of discharge: Labs from last 24 hours 12/27/24 12/26/24 12/26/24 08:06 23:04 22:30 WBC RBC Hgb Hct MCV MCH MCHC RDW Coeff of Angelique Plt Count Neut % (Auto) Lymph % (Auto) [place] % (Auto) Eos % (Auto) Baso % (Auto) Neut # (Auto) Lymph # (Auto) [place] # (Auto) Eos # (Auto) Baso # (Auto) Abs Immat Gran (auto) Imm/Tot Granulo (auto) Sodium 131 L 125 L Potassium 4.3 4.2 Chloride 101 92 L Carbon Dioxide 27 28 Anion Gap 3 L 5 L BUN 13 19 Creatinine 0.6 0.6 Estimated Creat Clear 35.26 35.26 Estimated GFR 89 89 Glucose 87 98 Serum Osmolality Pending Calcium 8.6 9.0 Total Bilirubin 0.3 0.2 AST 32 35 ALT 18 20 Alkaline Phosphatase 88 113 Troponin I < 0.01 Total Protein 6.5 7.2 Albumin 3.8 4.1 Lipase 112 Urine Color Urine Appearance Urine pH Ur Specific [place] Urine Protein Urine Glucose (UA) Urine Ketones Urine Blood Urine Nitrite Urine Bilirubin Urine Urobilinogen Ur Leukocyte Esterase Urine RBC Urine WBC Ur Squamous Epith Cells Urine Bacteria Lab Acknowledgement Test Added POC Creatinine 12/26/24 12/26/24 12/26/24 22:29 22:16 22:02 WBC RBC Hgb Hct MCV MCH MCHC RDW Coeff of Angelique Plt Count Neut % (Auto) Lymph % (Auto) [place] % (Auto) Eos % (Auto) Baso % (Auto) Neut # (Auto) Lymph # (Auto) [place] # (Auto) Eos # (Auto) Baso # (Auto) Abs Immat Gran (auto) Imm/Tot Granulo (auto) Sodium Potassium Chloride Carbon Dioxide Anion Gap BUN Creatinine Estimated Creat Clear Estimated GFR Glucose Serum Osmolality Calcium Total Bilirubin AST ALT Alkaline Phosphatase Troponin I Total Protein Albumin Lipase Urine Color Yellow Urine Appearance Clear Urine pH 7.0 Ur Specific [place] 1.010 Urine Protein Negative Urine Glucose (UA) Negative Urine Ketones Negative Urine Blood 2+ A Urine Nitrite Negative Urine Bilirubin Negative Urine Urobilinogen 0.2 Ur Leukocyte Esterase 1+ A Urine RBC 2-5 A Urine WBC 0-2 Ur Squamous Epith Cells None Urine Bacteria None Lab Acknowledgement Test Added POC Creatinine 0.7 12/26/24 22:00 WBC 4.37 L RBC 4.12 Hgb 12.2 Hct 35.3 MCV 86 MCH 30 MCHC 35 RDW Coeff of Angelique 12.2 Plt Count 281 Neut % (Auto) 39.8 L Lymph % (Auto) 42.8 [place] % (Auto) 8.5 Eos % (Auto) 8.2 H Baso % (Auto) 0.7 Neut # (Auto) 1.70 Lymph # (Auto) 1.90 [place]aver # (Auto) 0.40 Eos # (Auto) 0.40 Baso # (Auto) 0.00 Abs Immat Gran (auto) 0.00 Imm/Tot Granulo (auto) 0.0 Sodium Potassium Chloride Carbon Dioxide Anion Gap BUN Creatinine Estimated Creat Clear Estimated GFR Glucose Serum Osmolality Calcium Total Bilirubin AST ALT Alkaline Phosphatase Troponin I Total Protein Albumin Lipase Urine Color Urine Appearance Urine pH Ur Specific [place] Urine Protein Urine Glucose (UA) Urine Ketones Urine Blood Urine Nitrite Urine Bilirubin Urine Urobilinogen Ur Leukocyte Esterase Urine RBC Urine WBC Ur Squamous Epith Cells Urine Bacteria Lab Acknowledgement POC Creatinine Preliminary micro results at discharge 12/26/24 22:29 Urine Culture - Preliminary Urine,Clean Catch Culture in Progress Imaging CT scan - head: Attestation: I have reviewed the pertinent imaging results. Radiologist's impression: CSF space: Unremarkable for age. Brain: No evidence of mass, acute infarction or hemorrhage is seen. No mass-effect or midline shift is seen. Mild diffuse cortical atrophy is noted. The brain parenchyma is otherwise normal in appearance with preservation of the nash-white matter junction. Calvarium: The visualized paranasal sinuses are well aerated. The mastoid air cells are clear. The visualized orbits are grossly unremarkable. The calvarium is unremarkable in appearance with no fractures identified. IMPRESSION: 1. No evidence of acute infarction, intracranial hemorrhage, or mass-effect seen. CT scan - abdomen: Attestation: I have reviewed the pertinent imaging results. Radiologist's impression: Lower chest: Unremarkable. Liver: There is a subcapsular cyst in the left lateral segment of the liver measuring 2.5 cm. Spleen: Unremarkable. Pancreas: Unremarkable. Gallbladder: Unremarkable. Kidney: Unremarkable. No kidney or ureteral stones or obstruction seen. Adrenal: Unremarkable. Bowel: The stomach, small bowel, and colon are unremarkable. The appendix is not identified. Vascular: Moderate atherosclerotic calcifications of the abdominal aorta are present. Lymph: Unremarkable. Peritoneum: Unremarkable. No pneumoperitoneum is seen. No significant ascites is noted. Pelvis: The patient is status post prior hysterectomy. Soft tissue: Unremarkable. Bone: A moderate chronic appearing compression deformity seen along the superior endplate of L1. Trace anterolisthesis of L5-S1 is seen. IMPRESSION: 1. No CT correlate for the patient`s symptoms seen. Discharge Plan Discharge Disposition: Home, Self-Care Date of Admission: 12/27/24 02:26 Attending Provider on Discharge: Kristin Mehta Primary Care Provider: Provider,Not a Local Condition: Improved Anticipated Discharge Date/Time: 12/27/24 13:00 Discharge Medications: Continued atorvastatin 10 mg tablet 10 mg PO QPM metoprolol succinate 100 mg tablet extended release 24 hr 100 mg PO DAILY levothyroxine 25 mcg tablet 25 mcg PO DAILY hydroxychloroquine 200 mg tablet 300 mg PO DAILY sertraline 50 mg tablet 50 mg PO DAILY olmesartan 20 mg tablet 20 mg PO DAILY ketorolac 0.5 % drops 1 drp ophthalmic (eye) QID Rx Instructions: RIGHT EYE prednisolone acetate 1 % drops,suspension 1 drp ophthalmic (eye) QID Rx Instructions: RIGHT EYE Systane (propylene glycol) 0.4-0.3 % drops 1 drp ophthalmic (eye) .PRN PRN Culturelle 10 billion cell capsule 1 cap PO DAILY PRN cholecalciferol (vitamin D3) [Vitamin D3] 25 mcg (1,000 unit) tablet 25 mcg PO BID Discharge Orders: Discharge Order (Routine); Ordered 12/27/24 Ordered By: Kristin Mehta Additional Instructions: CONTINUE TO DRINK ELECTROLYTES OVER THE WEEKEND RATHER THAN PLAIN WATER IF YOU HAVE NEW OR RETURNING SYMPTOMS (HEADACHE, NAUSEA, ELEVATED BLOOD PRESSURE) YOU SHOULD HAVE YOUR SODIUM RECHECKED CONTINUE YOUR REGULAR MEDICATIONS AND TALK TO YOUR PROVIDER WHEN YOU RETURN HOME Activity Level: No Restrictions Discharge Diet: Regular Follow Up Appointments: Provider,Not a Local [Primary Care Provider, Family Practice] Forms: [employer] Info Instructions
[2024-12-27 10:51] LABS: C.Difficile Negative (Negative); CDIFFEPI 027 PRESUMPTIVE NEGATIVE (Negative)
[2024-12-27 11:20] VITALS: BP 128/62; PULSE 60; RESP 16; TEMP 36.7; O2SAT 100
[2024-12-27 12:25] LABS: Sodium* 130 mmol/L (135-149)
--- NOTE | 2024-12-27 14:19 | PC.NURSE ---
Pt doing well today. VSS. Denies pain. Tolerating regular diet. Pt still having intermittent diarrhea, denies nausea and vomiting. Pt ambulating independently. Pt discharge information signed. No questions or concerns at this time. Pt discharged to daughter's home at 1400 via [facility].
== END 2024-12-27 14:00 | disposition home or self-care (01) ==
LOC: ED 12-27 01:03 → MEDSURG 12-27 02:27
PROVIDERS: Physician Assistant; Student in an Organized Health Care Education/Training Program; Admitting Provider Family Medicine; Emergency Provider Student in an Organized Health Care Education/Training Program; Visit Provider Family Medicine
DX: E87.1 Hypo-osmolality and hyponatremia (principal); I10 Essential (primary) hypertension; R51.9 Headache, unspecified; R19.7 Diarrhea, unspecified; Z79.899 Other long term (current) drug therapy; E03.9 Hypothyroidism, unspecified
CPT/HCPCS: 36415; 70450; 74177; 80053; 81001; 82565; 83690; 83930; 83935; 84295; 84484; 85025; 87086; 87493; 93005; 96361; 96372; 96374; 96375; 99284; 99285; A9270; G0378; J1200; J2597; J2765; J7030; Q9967